=== PATIENT | male | born 1975 | race American Indian/Alaskan Native ===

== ENCOUNTER 2016-08-06 12:50 | Inpatient (IN) | payer MEDICARE, MEDICAID, OTHER ==
--- NOTE | 2016-08-06 12:45 | EDM.PDOC ---
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 He states at 0300 he got up and had diarrhea and then followed with vomiting. He has been unable to keep anything down since that time. He has mild diffuse abd pain without fever. no recent antibiotic use. Onset: Today Location: Reports: Abdomen Quality: Reports: Dull Severity: Moderate Improves with: Reports: None Worsens with: Reports: Eating - Related Data Allergies Allergy/AdvReac Type Severity Reaction Status Date / Time phenytoin sodium Allergy Cannot Verified 08/06/16 14:35 [From Dilantin] Remember Home Meds: Home Meds Insulin Detemir [Levemir] 6 units SQ BEDTIME 04/29/14 [History] Lisinopril [Zestril] 1 tab PO DAILY 04/29/14 [History] levETIRAcetam [Keppra] 500 mg PO BID 04/29/14 [History] Loperamide [Imodium] 6 mg PO DAILY 02/13/15 [History] Past Medical History Cardiovascular History: Reports: Hypertension Genitourinary History: Reports: UTI, Recurrent Musculoskeletal History: Reports: Amputation Neurological History: Reports: Seizure Endocrine/Metabolic History: Reports: Diabetes, Type II - Past Surgical History GI Surgical History: Reports: Cholecystectomy Musculoskeletal Surgical History: Reports: Amputation Social & Family History - Tobacco Use Smoking Status *Q: Current Every Day Smoker Years of Tobacco use: 30 Packs/Tins Daily: 0.1 Used Tobacco, but Quit: No Second Hand Smoke Exposure: Yes - Caffeine Use Caffeine Use: Reports: Coffee - Alcohol Use Days Per Week of Alcohol Use: 0 - Recreational Drug Use Recreational Drug Use: Yes Drug Use in Last 12 Months: Yes Recreational Drug Type: Reports: Marijuana/Hashish Recreational Drug Use Frequency: Monthly ED ROS GENERAL - Review of Systems Review Of Systems: See Below Constitutional: Reports: Fatigue. Denies: Fever, Chills, Malaise HEENT: Reports: No Symptoms Respiratory: Reports: No Symptoms Cardiovascular: Reports: No Symptoms GI/Abdominal: Reports: Abdominal Pain, Diarrhea, Vomiting : Reports: No Symptoms Musculoskeletal: Reports: No Symptoms Skin: Reports: No Symptoms Neurological: Reports: No Symptoms Psychiatric: Reports: No Symptoms ED EXAM, GI/ABD - Physical Exam Exam: See Below Exam Limited By: No Limitations General Appearance: Alert, WD/WN, No Apparent Distress, Mild Distress Ears: Normal External Exam, Normal Canal, Hearing Grossly Normal, Normal TMs Throat/Mouth: Normal Inspection, Normal Lips, Normal Teeth, Normal Gums, Normal Oropharynx, Normal Voice, No Airway Compromise Head: Atraumatic, Normocephalic Neck: Normal Inspection, Supple, Non-Tender, Full Range of Motion Respiratory/Chest: No Respiratory Distress, Lungs Clear, Normal Breath Sounds, No Accessory Muscle Use, Chest Non-Tender Cardiovascular: Normal Peripheral Pulses, No Edema, No Gallop, No JVD, No Murmur , No Rub, Tachycardia GI/Abdominal: Soft, No Organomegaly, No Distention, No Abnormal Bruit, No Mass, Hypoactive Bowel Sounds, Tenderness (left side upper and lower) Extremities: Non-Tender, Other (right BKA, Left AKA ) Neurological: Alert, Oriented, CN II-XII Intact, Normal Cognition, Normal Reflexes, No Motor/Sensory Deficits Psychiatric: Normal Affect, Normal Mood Skin Exam: Warm, Dry, Intact, Normal Color, No Rash Course - Vital Signs Last Recorded V/S: Last Vital Signs Temp 96.9 F 08/06/16 14:41 Pulse 106 H 08/06/16 14:41 Resp 18 08/06/16 14:41 BP 124/74 08/06/16 14:41 Pulse Ox 100 08/06/16 14:41 - Orders/Labs/Meds Orders: Active Orders 24 hr Category Date Time Status Blood Glucose Check, Bedside [RC] ONETIME Care 08/06/16 14:45 Active Abdomen Pelvis wo Cont [CT] Urgent Exams 08/06/16 13:44 Taken Chest 1V Frontal [CR] Urgent Exams 08/06/16 13:47 Taken Chest 2V [CR] Urgent Exams 08/06/16 13:43 Stop Req CULTURE BLOOD [BC] Stat Lab 08/06/16 14:10 Received CULTURE BLOOD [BC] Stat Lab 08/06/16 14:15 Received Blood Culture x2 Reflex Set [OM.PC] Stat Oth 08/06/16 13:44 Ordered Labs: Laboratory Tests 08/06/16 08/06/16 08/06/16 Range/Units 13:02 13:02 13:35 WBC 18.7 H (5.0-10.0) 10^3/uL RBC 5.43 (4.6-6.2) 10^6/uL Hgb 16.4 (14.0-18.0) g/dL Hct 47.2 (40.0-54.0) % MCV 86.9 (80-100) fL MCH 30.2 (27.0-34.0) pg MCHC 34.7 (33.0-35.0) g/dL Plt Count 204 (150-450) 10^3/uL Neut % (Auto) 91.4 H (42.2-75.2) % Lymph % (Auto) 2.5 L (20.5-50.1) % Chase % (Auto) 5.7 (2-8) % Eos % (Auto) 0.2 L (1.0-3.0) % Baso % (Auto) 0.2 (0.0-1.0) % Sodium 134 L (135-145) mmol/L Potassium 4.5 (3.6-5.0) mmol/L Chloride 101 (101-111) mmol/L Carbon Dioxide 17.0 L (21.0-31.0) mmol/L Anion Gap 20.5 BUN 33 H (7-18) mg/dL Creatinine 2.6 H (0.6-1.3) mg/dL Est Cr Clr Drug Dosing 39.96 mL/min Estimated GFR (MDRD) 27 BUN/Creatinine Ratio 12.69 Glucose 442 H* (74-105) mg/dL POC Glucose (70-105) mg/dl Lactic Acid (0.5-2.2) mmol/L Calcium 9.6 (8.4-10.2) mg/dl Total Bilirubin 1.0 (0.2-1.0) mg/dL AST 27 (10-42) IU/L ALT 19 (10-60) IU/L Alkaline Phosphatase 109 (42-121) IU/L Creatine Kinase 32 (26-174) IU/L Total Protein 8.0 (6.7-8.2) g/dl Albumin 4.3 (3.2-5.5) g/dl Globulin 3.7 Albumin/Globulin Ratio 1.16 Lipase 22 (22-51) U/L Urine Color Yellow (YELLOW) Urine Appearance Turbid (CLEAR) Urine pH 5.0 (5.0-9.0) Ur Specific Unity >= 1.030 (1.005-1.030) Urine Protein >=300 H (NEGATIVE) Urine Glucose (UA) 100 H (NEGATIVE) Urine Ketones 15 H (NEGATIVE) Urine Occult Blood Small H (NEGATIVE) Urine Nitrite Negative (NEGATIVE) Urine Bilirubin Large H (NEGATIVE) Urine Urobilinogen 0.2 (0.2-1.0) mg/dL Ur Leukocyte Esterase Negative (NEGATIVE) Urine RBC 0-5 /HPF Urine WBC 5-10 H (0-5/HPF) /HPF Ur Epithelial Cells Few /HPF Urine Bacteria Many H (0-FEW/HPF) /HPF Granular Casts Moderate /LPF Urine Mucus Moderate H /LPF 08/06/16 08/06/16 Range/Units 14:10 14:46 WBC (5.0-10.0) 10^3/uL RBC (4.6-6.2) 10^6/uL Hgb (14.0-18.0) g/dL Hct (40.0-54.0) % MCV (80-100) fL MCH (27.0-34.0) pg MCHC (33.0-35.0) g/dL Plt Count (150-450) 10^3/uL Neut % (Auto) (42.2-75.2) % Lymph % (Auto) (20.5-50.1) % Chase % (Auto) (2-8) % Eos % (Auto) (1.0-3.0) % Baso % (Auto) (0.0-1.0) % Sodium (135-145) mmol/L Potassium (3.6-5.0) mmol/L Chloride (101-111) mmol/L Carbon Dioxide (21.0-31.0) mmol/L Anion Gap BUN (7-18) mg/dL Creatinine (0.6-1.3) mg/dL Est Cr Clr Drug Dosing mL/min Estimated GFR (MDRD) BUN/Creatinine Ratio Glucose (74-105) mg/dL POC Glucose 392 H (70-105) mg/dl Lactic Acid 2.8 H (0.5-2.2) mmol/L Calcium (8.4-10.2) mg/dl Total Bilirubin (0.2-1.0) mg/dL AST (10-42) IU/L ALT (10-60) IU/L Alkaline Phosphatase (42-121) IU/L Creatine Kinase (26-174) IU/L Total Protein (6.7-8.2) g/dl Albumin (3.2-5.5) g/dl Globulin Albumin/Globulin Ratio Lipase (22-51) U/L Urine Color (YELLOW) Urine Appearance (CLEAR) Urine pH (5.0-9.0) Ur Specific Unity (1.005-1.030) Urine Protein (NEGATIVE) Urine Glucose (UA) (NEGATIVE) Urine Ketones (NEGATIVE) Urine Occult Blood (NEGATIVE) Urine Nitrite (NEGATIVE) Urine Bilirubin (NEGATIVE) Urine Urobilinogen (0.2-1.0) mg/dL Ur Leukocyte Esterase (NEGATIVE) Urine RBC /HPF Urine WBC (0-5/HPF) /HPF Ur Epithelial Cells /HPF Urine Bacteria (0-FEW/HPF) /HPF Granular Casts /LPF Urine Mucus /LPF Meds: Medications Discontinued Medications Generic Name Dose Route Start Last Admin Trade Name Freq PRN Reason Stop Dose Admin Ondansetron HCl 8 mg/ Sodium 54 mls @ 200 mls/hr 08/06/16 12:52 08/06/16 13: 01 Chloride IV 08/06/16 13:08 200 mls/hr ONETIME ONE Administration Sodium Chloride 1,000 mls @ 999 mls/hr 08/06/16 13:11 08/06/16 13:36 Normal Saline IV 08/06/16 14:11 999 mls/hr .BOLUS ONE Administration Ondansetron HCl 8 mg/ Sodium 54 mls @ 200 mls/hr 08/06/16 13:16 08/06/16 13: 36 Chloride IV 08/06/16 13:32 200 mls/hr ONETIME ONE Administration Insulin Human Regular 10 unit 08/06/16 13:41 08/06/16 13:53 Novolin R SUBCUT 08/06/16 13:42 10 units ONETIME ONE Administration Protocol Metoclopramide HCl 10 mg 08/06/16 13:17 08/06/16 13:36 Reglan IVPUSH 08/06/16 13:18 10 mg ONETIME ONE Administration Ondansetron HCl Confirm 08/06/16 12:36 08/06/16 13:02 Zofran Administered 08/06/16 12:37 Not Given Dose 8 mg .ROUTE .STK-MED ONE - Re-Assessments/Exams Free Text/Narrative Re-Assessment/Exam: 08/06/16 15:07 On reassessment patient is comfortable/ vomiting has subsided. pain controlled. Patient told of results and the need to admit. Patient was discussed with DR. Cortes who agreed to admit. patient stable at time of admission. Departure - Departure Time of Disposition: 15:05 (spoke with Dr. Burris who agreed to admit. ) Disposition: Admitted As Inpatient 64 Condition: good Clinical Impression: Leukocytosis, unspecified, Abdominal pain in male, Diabetes 1.5, managed as type 2, Dehydration - Discharge Information - My Orders Last 24 Hours: My Active Orders 08/06/16 13:43 Chest 2V [CR] Urgent 08/06/16 13:44 Abdomen Pelvis wo Cont [CT] Urgent Blood Culture x2 Reflex Set [OM.PC] Stat 08/06/16 13:47 Chest 1V Frontal [CR] Urgent 08/06/16 14:10 CULTURE BLOOD [BC] Stat 08/06/16 14:15 CULTURE BLOOD [BC] Stat 08/06/16 14:45 Blood Glucose Check, Bedside [RC] ONETIME - Assessment/Plan Last 24 Hours: My Active Orders 08/06/16 13:43 Chest 2V [CR] Urgent 08/06/16 13:44 Abdomen Pelvis wo Cont [CT] Urgent Blood Culture x2 Reflex Set [OM.PC] Stat 08/06/16 13:47 Chest 1V Frontal [CR] Urgent 08/06/16 14:10 CULTURE BLOOD [BC] Stat 08/06/16 14:15 CULTURE BLOOD [BC] Stat 08/06/16 14:45 Blood Glucose Check, Bedside [RC] ONETIME
[~2016-08-06 12:50] MED LIST: Ondansetron 4 MG/2 ML SDV ONE
[2016-08-06] MEDS ORDERED: Ondansetron 8 MG in Sodium Chloride 0.9% 50 ML IV ONE ×2 (12:52→13:16)
[2016-08-06] MEDS ORDERED: Sodium Chloride 0.9% 1,000 ML IV ONE (13:11)
[2016-08-06] MEDS ORDERED: Metoclopramide 10 MG/2 ML SDV IVPUSH ONE (13:17)
[2016-08-06] MEDS ORDERED: Insulin Regular, Human 100 Units/ML 10 ML Vial SUBCUT ONE (13:41)
[2016-08-06] MEDS ORDERED: Insulin Aspart 100 Units/ML 3 ML Pen SUBCUT ONE (16:11)
[2016-08-06] MEDS ORDERED: Acetaminophen 325 MG Tab PO PRN (16:14)
[2016-08-06] MEDS ORDERED: Zolpidem 5 MG Tab PO PRN (16:14)
[2016-08-06] MEDS ORDERED: Ondansetron 4 MG Tab.DIS PO PRN (16:14)
[2016-08-06] MEDS ORDERED: oxyCODONE 5 MG Tab PO PRN (16:14)
[2016-08-06] MEDS ORDERED: Morphine 2 MG/ML Syringe IVPUSH PRN (16:14)
[2016-08-06] MEDS ORDERED: Promethazine 25 MG/ML SDV IM PRN (16:14)
[2016-08-06] MEDS ORDERED: Ondansetron 4 MG/2 ML SDV IVPUSH PRN (16:14)
[2016-08-06] MEDS ORDERED: Sodium Chloride 0.9% 10 ML Syringe FLUSH PRN (16:14)
--- NOTE | 2016-08-06 16:23 | PCM.HP ---
H&P History of Present Illness - General Date of Service: 08/06/16 Admit Problem/Dx: Admission Diagnosis/Problem Admission Diagnosis/Problem Acute renal failure Source of Information: Patient, Provider (ER) - History of Present Illness Initial Comments - Free Text/Narative: the patient is a 41-year-old gentleman with a history of diabetes type 1, bilateral lower extremity amputation, history of seizure disorder. He has chronic diarrhea taking about 6 mg Imodium every day. he has a history of diabetes, using long-acting insulin only. 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 Because of those bowel movements although that is not unusual for him. He could not keep fluid or food down. After some panel vomiting the patient developed abdomen pain mostly on the left side crampy. The patient has a history of diabetes. This morning blood sugar was in the 130s. came into the emergency room. Was given antiemetics and pain medication. He feels that the pain has resolved Nausea is better - Related Data Allergies/Adverse Reactions: Allergies Allergy/AdvReac Type Severity Reaction Status Date / Time phenytoin sodium Allergy Cannot Verified 08/06/16 15:57 [From Dilantin] Remember Home Medications: Home Meds Insulin Detemir [Levemir] 15 units SQ BEDTIME 04/29/14 [History] Lisinopril [Zestril] 10 mg PO DAILY 04/29/14 [History] levETIRAcetam [Keppra] 500 mg PO BIDMEALS 04/29/14 [History] Loperamide [Imodium] 6 mg PO DAILY 02/13/15 [History] Past Medical History Cardiovascular History: Reports: Hypertension Gastrointestinal History: Reports: Gastritis, Other (See Below) Genitourinary History: Reports: UTI, Recurrent Musculoskeletal History: Reports: Amputation, Other (See Below) Other Musculoskeletal History: 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 Neurological History: Reports: Seizure Endocrine/Metabolic History: Reports: Diabetes, Type II - Past Surgical History Cardiovascular Surgical History: Reports: None GI Surgical History: Reports: Cholecystectomy Male Surgical History: Reports: None Endocrine Surgical History: Reports: None Neurological Surgical History: Reports: None Musculoskeletal Surgical History: Reports: Amputation Social & Family History - Family History Family Medical History: Noncontributory - Tobacco Use Smoking Status *Q: Former Smoker Years of Tobacco use: 30 Packs/Tins Daily: 0.1 Used Tobacco, but Quit: Yes Month Tobacco Last Used: 05/06/16 Second Hand Smoke Exposure: No - Caffeine Use Caffeine Use: Reports: Coffee, Soda - Alcohol Use Days Per Week of Alcohol Use: 0 - Recreational Drug Use Recreational Drug Use: Yes Drug Use in Last 12 Months: Yes Recreational Drug Type: Reports: Marijuana/Hashish Recreational Drug Use Frequency: Daily H&P Review of Systems - Review of Systems: Review Of Systems: See Below General: Denies: Fever Pulmonary: Denies: Shortness of Breath Cardiovascular: Denies: Chest Pain Gastrointestinal: Reports: Abdominal Pain, Nausea, Vomiting. Denies: Black Stool Genitourinary: Denies: Dysuria Psychiatric: Denies: Confusion Exam - Exam Exam: See Below - Vital Signs Vital Signs: Last Vital Signs Temp 37.2 C 08/06/16 15:47 Pulse 110 H 08/06/16 15:47 Resp 18 08/06/16 15:47 BP 113/77 08/06/16 15:47 Pulse Ox 100 08/06/16 15:47 Weight: 74.933 kg - Exam General: Alert, Oriented Neck: Supple Lungs: Clear to Auscultation, Normal Respiratory Effort Cardiovascular: Regular Rate, Regular Rhythm Abdomen: Normal Bowel Sounds, Soft. No: Distention Extremities: Other (left above-knee and right below knee amputation) - Patient Data Result Diagrams: 08/06/16 13:02 08/06/16 13:02 Imaging Impressions last 24 hrs: chest x-ray per official reading "no acute findings" CT abdomen and pelvis without IV contrast showed "multiple loops of dilated small bowel with air fluid levels. The bowel wall thickening in the jejunum. Opacities in the lingula and both lower lobes May represents atelectasis or pneumonia. *Q Meaningful Use (ADM) - VTE *Q VTE Criteria *Q: - Stroke *Q Stroke Criteria *Q: - AMI *Q AMI Criteria *Q: - Problem List (1) Acute renal failure SNOMED Code(s): 77799667 ICD Code: N17.9 - ACUTE KIDNEY FAILURE, UNSPECIFIED Status: Acute Current Visit: Yes (2) Diabetic ketoacidosis SNOMED Code(s): 006502280, 138054095 ICD Code: E13.10 - OTH DIABETES MELLITUS WITH KETOACIDOSIS WITHOUT COMA Status: Acute Current Visit: Yes (3) Gastroenteritis SNOMED Code(s): 38207761 ICD Code: K52.9 - NONINFECTIVE GASTROENTERITIS AND COLITIS, UNSPECIFIED Status: Acute Current Visit: Yes (4) Abdominal pain in male SNOMED Code(s): 13123033 ICD Code: R10.9 - UNSPECIFIED ABDOMINAL PAIN Status: Acute Current Visit : Yes (5) Dehydration SNOMED Code(s): 80112544 ICD Code: E86.0 - DEHYDRATION Status: Acute Current Visit: Yes (6) Uncontrolled diabetes mellitus SNOMED Code(s): 974808341 ICD Code: E11.65 - TYPE 2 DIABETES MELLITUS WITH HYPERGLYCEMIA Status: Acute Current Visit: No Qualifiers: Diabetes mellitus type: other specified (including RADHA) Diabetes mellitus complication status: with unspecified complications Diabetes mellitus roasterman insulin use: with roasterman use Qualified Code(s): E13.8 - Other specified diabetes mellitus with unspecified complications; E13.65 - Other specified diabetes mellitus with hyperglycemia; Z79.4 - long term care social worker (current) use of insulin Problem List Initiated/Reviewed/Updated: Yes Orders Last 24hrs: Active Orders 24 hr Category Date Time Status Glucose [Blood Glucose Check, Bedside] [RC] QIDACANDBED Care 08/06/16 16:12 Ordered Oxygen Therapy [RC] PRN Care 08/06/16 16:14 Ordered Peripheral IV Care [RC] . DIRECTED Care 08/06/16 16:15 Ordered Up With Assistance [RC] ASDIRECTED Care 08/06/16 16:14 Ordered VTE/DVT Education [RC] PER UNIT ROUTINE Care 08/06/16 16:14 Ordered Vital Signs [RC] Q4H Care 08/06/16 16:14 Ordered Full Liquid Diet [DIET] Diet 08/06/16 Dinner Ordered BASIC METABOLIC PANEL,BMP [CHEM] AM Lab 08/07/16 05:15 Ordered CBC WITH AUTO DIFF [HEME] AM Lab 08/07/16 05:15 Ordered LACTIC ACID [CHEM] AM Lab 08/07/16 05:11 Ordered LACTIC ACID [CHEM] Routine Lab 08/06/16 19:00 Ordered Acetaminophen [Tylenol] Med 08/06/16 16:14 Ordered 650 mg PO Q4H PRN Heparin Sodium Med 08/06/16 22:00 Ordered 5,000 units SUBCUT Q8HR Insulin Aspart [NovoLOG] Med 08/06/16 17:00 Ordered See Protocol SUBCUT TIDAC Insulin Detemir Med 08/06/16 21:00 Ordered 15 units SQ BEDTIME Loperamide [Imodium] Med 08/07/16 09:00 Ordered 6 mg PO DAILY Morphine Med 08/06/16 16:14 Ordered 1 mg IVPUSH Q2H PRN Ondansetron [Zofran ODT] Med 08/06/16 16:14 Ordered 4 mg PO Q6H PRN Ondansetron [Zofran] Med 08/06/16 16:14 Ordered 4 mg IVPUSH Q6H PRN Pantoprazole [ProTONIX] Med 08/06/16 17:00 Ordered 40 mg PO BIDAC Promethazine [Phenergan] Med 08/06/16 16:14 Ordered 6.25 mg IM Q6H PRN Sodium Chloride 0.9% @ 150 MLS/HR (1000ml) Med 08/06/16 16:15 Ordered Sodium Chloride 0.9% [Normal Saline] 1,000 ml IV ASDIRECTED Sodium Chloride 0.9% [Saline Flush] Med 08/06/16 16:14 Ordered 10 ml FLUSH ASDIRECTED PRN Zolpidem [Ambien] Med 08/06/16 16:14 Ordered 5 mg PO BEDTIME PRN levETIRAcetam [Keppra] Med 08/06/16 18:00 Ordered 500 mg PO BIDMEALS oxyCODONE Med 08/06/16 16:14 Ordered 5 mg PO Q4H PRN Peripheral IV Insertion Adult [OM.PC] Routine Oth 08/06/16 16:14 Ordered Resuscitation Status Routine Resus Stat 08/06/16 16:14 Ordered Medication Orders Acetaminophen (Tylenol) 650 mg PO Q4H PRN PRN Reason: Pain (Mild 1-3)/fever Heparin Sodium (Porcine) (Heparin Sodium) 5,000 units SUBCUT Q8HR BRENT Sodium Chloride (Normal Saline) 1,000 mls @ 150 mls/hr IV ASDIRECTED BRENT Insulin Aspart (Novolog) 0 unit SUBCUT TIDAC BRENT PRN Reason: Protocol Levetiracetam (Keppra) 500 mg PO BIDMEALS BRENT Loperamide HCl (Imodium) 6 mg PO DAILY BRENT Morphine Sulfate (Morphine) 1 mg IVPUSH Q2H PRN PRN Reason: Pain (severe 7-10) Non-Formulary Medication (Insulin Detemir) 15 units SQ BEDTIME BRENT Ondansetron HCl (Zofran Odt) 4 mg PO Q6H PRN PRN Reason: nausea, able to take PO Ondansetron HCl (Zofran) 4 mg IVPUSH Q6H PRN PRN Reason: Nausea/Vomiting Oxycodone HCl (Oxycodone) 5 mg PO Q4H PRN PRN Reason: Pain (moderate 4-6) Pantoprazole Sodium (Protonix) 40 mg PO BIDAC BRENT Promethazine HCl (Phenergan) 6.25 mg IM Q6H PRN PRN Reason: Nausea/Vomiting Sodium Chloride (Saline Flush) 10 ml FLUSH ASDIRECTED PRN PRN Reason: Keep Vein Open Zolpidem Tartrate (Ambien) 5 mg PO BEDTIME PRN PRN Reason: Sleep Assessment/Plan Comment:: the patient is a 41-year-old diabetic who presented with nausea vomiting. Nausea and vomiting that might relate to acute gastroenteritis we'll hydrate the patient Treat with antiemetics and Imodium as needed The patient does have a history of chronic diarrhea C. differential is less likely, continue Imodium Leukocytosis Clinically the patient has no pneumonia This might relate to nausea vomiting, gastroenteritis Obtained blood culture For now hold off on antibiotic Acute renal failure Likely secondary to dehydration due to nausea vomiting decreased oral intake Stop ANEL inhibitor give fluids uncontrolled diabetes, diabetic ketoacidosis with elevated anion gap We'll give IV fluids add short-acting insulin follow blood sugars History of seizure disorder Treat with Kiran History of hypertension With the acute renal failure for now hold the ANEL inhibitor lactic acidosis Likely due to nausea vomiting and DKA I don't think this represents severe sepsis Recheck lactic acid levels
[2016-08-06] MEDS: Sodium Chloride 0.9% 1,000 ML IV SCH ×2 (16:35→23:55)
[2016-08-06] MEDS ORDERED: Pantoprazole 40 MG Tab.CR PO SCH (17:00)
[2016-08-06] MEDS ORDERED: Insulin Aspart 100 Units/ML 3 ML Pen SUBCUT SCH (17:00)
[2016-08-06] MEDS: levETIRAcetam 500 MG Tab PO SCH (17:38)
[2016-08-06] MEDS: Insulin Aspart 100 Units/ML 3 ML Pen SUBCUT SCH ×2 (20:27→23:59)
[2016-08-06] MEDS: Pantoprazole 40 MG Vial IVPUSH SCH (20:28)
[2016-08-06] MEDS ORDERED: Insulin Detemir 100 Units/ML 3 ML Pen SUBCUT SCH ×2 (21:00)
[2016-08-06] MEDS: Heparin Sodium 5,000 Units/ML Vial SUBCUT SCH (21:00)
[2016-08-07] MEDS: Insulin Aspart 100 Units/ML 3 ML Pen SUBCUT SCH ×2 (04:08→07:54)
[2016-08-07] MEDS: Heparin Sodium 5,000 Units/ML Vial SUBCUT SCH (06:01)
[2016-08-07] MEDS: Sodium Chloride 0.9% 1,000 ML IV SCH (06:19)
[2016-08-07 06:59] VITALS: BP 124/67
[2016-08-07] MEDS: Pantoprazole 40 MG Vial IVPUSH SCH (08:15)
[2016-08-07] MEDS: levETIRAcetam 500 MG Tab PO SCH (08:15)
[2016-08-07] MEDS ORDERED: Loperamide 2 MG Cap PO SCH (09:00)
--- NOTE | 2016-08-07 10:49 | PCM.DCSUM1 ---
Discharge Summary - Hospital Course Free Text/Narrative:: the patient is a 41-year-old gentleman with a history of diabetes type 1, bilateral lower extremity amputation, history of seizure disorder. He has chronic diarrhea taking about 6 mg Imodium every day. he has a history of diabetes, using long-acting insulin only. 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 Because of those bowel movements although that is not unusual for him. He could not keep fluid or food down. After some panel vomiting the patient developed abdomen pain mostly on the left side crampy. The patient has a history of diabetes. This morning blood sugar was in the 130s. came into the emergency room. blood sugars were above 400. Was given antiemetics and pain medication. Nausea and vomiting that might relate to acute gastroenteritis resolved with hydration tolerating diet and drinking well Leukocytosis Clinically the patient has no pneumonia This might relate to nausea vomiting, gastroenteritis Obtained blood culture - pending Acute renal failure Likely secondary to dehydration due to nausea vomiting decreased oral intake improved with IV fluids can resume ANEL inhibitor follow as outpatient uncontrolled diabetes, diabetic ketoacidosis with elevated anion gap treated with IV fluids and short-acting insulin blood sugars normalized Patient is able to eat and drink well, feeling well metabolic acidosis improved, lactic acidosis resolved History of seizure disorder Treat with Kefermin - Discharge Data Discharge Date: 08/07/16 Discharge Disposition: Home, Self-Care 01 Condition: Good - Discharge Diagnosis/Problem(s) (1) Acute renal failure SNOMED Code(s): 47104543 ICD Code: N17.9 - ACUTE KIDNEY FAILURE, UNSPECIFIED Status: Acute Current Visit: Yes (2) Diabetic ketoacidosis SNOMED Code(s): 016791061, 136802737 ICD Code: E13.10 - OTH DIABETES MELLITUS WITH KETOACIDOSIS WITHOUT COMA Status: Acute Current Visit: Yes (3) Gastroenteritis SNOMED Code(s): 73874961 ICD Code: K52.9 - NONINFECTIVE GASTROENTERITIS AND COLITIS, UNSPECIFIED Status: Acute Current Visit: Yes (4) Abdominal pain in male SNOMED Code(s): 18578606 ICD Code: R10.9 - UNSPECIFIED ABDOMINAL PAIN Status: Acute Current Visit : Yes (5) Dehydration SNOMED Code(s): 96502882 ICD Code: E86.0 - DEHYDRATION Status: Acute Current Visit: Yes (6) Uncontrolled diabetes mellitus SNOMED Code(s): 673915475 ICD Code: E11.65 - TYPE 2 DIABETES MELLITUS WITH HYPERGLYCEMIA Status: Acute Current Visit: No Qualifiers: Diabetes mellitus type: other specified (including RADHA) Diabetes mellitus complication status: with unspecified complications Diabetes mellitus penitentiary insulin use: with long term care pharmacist use Qualified Code(s): E13.8 - Other specified diabetes mellitus with unspecified complications; E13.65 - Other specified diabetes mellitus with hyperglycemia; Z79.4 - [facility] (current) use of insulin - Discharge Plan Home Medications: Home Meds Insulin Detemir [Levemir] 6 units SQ BEDTIME 04/29/14 [History] Lisinopril [Zestril] 10 mg PO DAILY 04/29/14 [History] levETIRAcetam [Keppra] 500 mg PO BIDMEALS 04/29/14 [History] Loperamide [Imodium] 6 mg PO DAILY 02/13/15 [History] Referrals: PCP,None [Primary Care Provider] - (in 2-3 days) - General Info Date of Service: 08/07/16 Admission Dx/Problem (Free Text: Admission Diagnosis/Problem Admission Diagnosis/Problem Acute renal failure Functional Status: Reports: tolerating diet, urinating - Review of Systems Pulmonary: Denies: shortness of breath Cardiovascular: Denies: Chest Pain Gastrointestinal: Denies: Abdominal pain, Decreased appetite, Diarrhea, Nausea, Vomiting Genitourinary: Denies: dysuria Neurological: Denies: Confusion - Patient Data Vitals - Most Recent: Last Vital Signs Temp 36.7 C 08/07/16 06:58 Pulse 95 08/07/16 06:58 Resp 20 08/07/16 06:58 BP 124/67 08/07/16 06:58 Pulse Ox 99 08/07/16 06:58 Weight - Most Recent: 74.933 kg I&O - Last 24 hours: Intake & Output 08/06/16 08/07/16 08/07/16 22:59 06:59 14:59 Intake Total 2334 1184 300 Output Total 200 Balance 2334 984 300 Lab Results - Last 24 hrs: Laboratory Results - last 24 hr 08/06/16 08/06/16 08/06/16 Range/Units 19:00 20:04 23:52 WBC (5.0-10.0) 10^3/uL RBC (4.6-6.2) 10^6/uL Hgb (14.0-18.0) g/dL Hct (40.0-54.0) % MCV (80-100) fL MCH (27.0-34.0) pg MCHC (33.0-35.0) g/dL Plt Count (150-450) 10^3/uL Neut % (Auto) (42.2-75.2) % Lymph % (Auto) (20.5-50.1) % [place] % (Auto) (2-8) % Eos % (Auto) (1.0-3.0) % Baso % (Auto) (0.0-1.0) % Sodium (135-145) mmol/L Potassium (3.6-5.0) mmol/L Chloride (101-111) mmol/L Carbon Dioxide (21.0-31.0) mmol/L Anion Gap BUN (7-18) mg/dL Creatinine (0.6-1.3) mg/dL Est Cr Clr Drug Dosing mL/min Estimated GFR (MDRD) Glucose (74-105) mg/dL POC Glucose 257 H 237 H (70-105) mg/dl Lactic Acid 3.9 H (0.5-2.2) mmol/L Calcium (8.4-10.2) mg/dl 08/07/16 08/07/16 08/07/16 Range/Units 03:57 05:45 05:45 WBC 12.8 H (5.0-10.0) 10^3/uL RBC 4.54 L (4.6-6.2) 10^6/uL Hgb 13.6 L (14.0-18.0) g/dL Hct 39.9 L (40.0-54.0) % MCV 87.9 (80-100) fL MCH 30.0 (27.0-34.0) pg MCHC 34.1 (33.0-35.0) g/dL Plt Count 180 (150-450) 10^3/uL Neut % (Auto) 82.6 H (42.2-75.2) % Lymph % (Auto) 8.4 L (20.5-50.1) % [place] % (Auto) 7.9 (2-8) % Eos % (Auto) 0.9 L (1.0-3.0) % Baso % (Auto) 0.2 (0.0-1.0) % Sodium (135-145) mmol/L Potassium (3.6-5.0) mmol/L Chloride (101-111) mmol/L Carbon Dioxide (21.0-31.0) mmol/L Anion Gap BUN (7-18) mg/dL Creatinine (0.6-1.3) mg/dL Est Cr Clr Drug Dosing mL/min Estimated GFR (MDRD) Glucose (74-105) mg/dL POC Glucose 164 H (70-105) mg/dl Lactic Acid 0.8 (0.5-2.2) mmol/L Calcium (8.4-10.2) mg/dl 08/07/16 08/07/16 Range/Units 05:45 07:53 WBC (5.0-10.0) 10^3/uL RBC (4.6-6.2) 10^6/uL Hgb (14.0-18.0) g/dL Hct (40.0-54.0) % MCV (80-100) fL MCH (27.0-34.0) pg MCHC (33.0-35.0) g/dL Plt Count (150-450) 10^3/uL Neut % (Auto) (42.2-75.2) % Lymph % (Auto) (20.5-50.1) % [place] % (Auto) (2-8) % Eos % (Auto) (1.0-3.0) % Baso % (Auto) (0.0-1.0) % Sodium 135 (135-145) mmol/L Potassium 4.2 (3.6-5.0) mmol/L Chloride 107 (101-111) mmol/L Carbon Dioxide 20.0 L (21.0-31.0) mmol/L Anion Gap 12.2 BUN 32 H (7-18) mg/dL Creatinine 2.0 H (0.6-1.3) mg/dL Est Cr Clr Drug Dosing 50.48 mL/min Estimated GFR (MDRD) 37 Glucose 141 H (74-105) mg/dL POC Glucose 137 H (70-105) mg/dl Lactic Acid (0.5-2.2) mmol/L Calcium 8.5 (8.4-10.2) mg/dl Med Orders - Current: Current Medications Acetaminophen (Tylenol) 650 mg PO Q4H PRN PRN Reason: Pain (Mild 1-3)/fever Heparin Sodium (Porcine) (Heparin Sodium) 5,000 units SUBCUT Q8HR [facility] Last Admin: 08/07/16 06:01 Dose: 5,000 units Sodium Chloride (Normal Saline) 1,000 mls @ 150 mls/hr IV ASDIRECTED [facility] Last Admin: 08/07/16 06:19 Dose: 150 mls/hr Insulin Aspart (Novolog) 0 unit SUBCUT Q4H [facility] PRN Reason: Protocol Last Admin: 08/07/16 07:54 Dose: Not Given Insulin Detemir (Levemir) 6 unit SUBCUT BEDTIME [facility] Last Admin: 08/06/16 20:58 Dose: 6 units Levetiracetam (Keppra) 500 mg PO BIDMEALS [facility] Last Admin: 08/07/16 08:15 Dose: 500 mg Loperamide HCl (Imodium) 6 mg PO DAILY [facility] Last Admin: 08/07/16 08:15 Dose: 6 mg Morphine Sulfate (Morphine) 1 mg IVPUSH Q2H PRN PRN Reason: Pain (severe 7-10) Ondansetron HCl (Zofran Odt) 4 mg PO Q6H PRN PRN Reason: nausea, able to take PO Ondansetron HCl (Zofran) 4 mg IVPUSH Q6H PRN PRN Reason: Nausea/Vomiting Oxycodone HCl (Oxycodone) 5 mg PO Q4H PRN PRN Reason: Pain (moderate 4-6) Last Admin: 08/07/16 00:07 Dose: 5 mg Pantoprazole Sodium (Protonix Iv) 40 mg IVPUSH Q12H [facility] Last Admin: 08/07/16 08:15 Dose: 40 mg Promethazine HCl (Phenergan) 6.25 mg IM Q6H PRN PRN Reason: Nausea/Vomiting Sodium Chloride (Saline Flush) 10 ml FLUSH ASDIRECTED PRN PRN Reason: Keep Vein Open Zolpidem Tartrate (Ambien) 5 mg PO BEDTIME PRN PRN Reason: Sleep Discontinued Medications Ondansetron HCl 8 mg/ Sodium (Chloride) 54 mls @ 200 mls/hr IV ONETIME ONE Stop: 08/06/16 13:08 Last Admin: 08/06/16 13:01 Dose: 200 mls/hr Sodium Chloride (Normal Saline) 1,000 mls @ 999 mls/hr IV .BOLUS ONE Stop: 08/06/16 14:11 Last Admin: 08/06/16 13:36 Dose: 999 mls/hr Ondansetron HCl 8 mg/ Sodium (Chloride) 54 mls @ 200 mls/hr IV ONETIME ONE Stop: 08/06/16 13:32 Last Admin: 08/06/16 13:36 Dose: 200 mls/hr Insulin Aspart (Novolog) 10 unit SUBCUT ONETIME ONE Stop: 08/06/16 16:12 Last Admin: 08/06/16 16:36 Dose: 10 units Insulin Aspart (Novolog) 0 unit SUBCUT TIDAC [facility] PRN Reason: Protocol Insulin Detemir (Levemir) 15 unit SUBCUT BEDTIME [facility] Insulin Human Regular (Novolin R) 10 unit SUBCUT ONETIME ONE PRN Reason: Protocol Stop: 08/06/16 13:42 Last Admin: 08/06/16 13:53 Dose: 10 units Metoclopramide HCl (Reglan) 10 mg IVPUSH ONETIME ONE Stop: 08/06/16 13:18 Last Admin: 08/06/16 13:36 Dose: 10 mg Ondansetron HCl (Zofran) Confirm Administered Dose 8 mg .ROUTE .STK-MED ONE Stop: 08/06/16 12:37 Last Admin: 08/06/16 13:02 Dose: Not Given Pantoprazole Sodium (Protonix) 40 mg PO BIDAC [facility] Last Admin: 08/06/16 16:35 Dose: 40 mg - Exam General: Reports: alert, oriented Neck: Reports: supple Lungs: Reports: Clear to auscultation, Normal respiratory effort Cardiovascular: Reports: Regular Rate, Regular Rhythm Abdomen: Reports: bowel sounds present, soft, no tenderness, no distension Extremities: Reports: other (bilateral lower extremity amputations) Neurological: Reports: no new focal deficit Psy/Mental Status: Reports: alert, normal affect, normal mood *Q Meaningful Use (DIS) - VTE *Q VTE Criteria *Q: - Stroke *Q Stroke Criteria *Q: - AMI *Q AMI Criteria *Q:
== END 2016-08-07 11:20 | disposition home or self-care (01) | DRG 682 ==
LOC: DL.ED 12:50 → DL.MS 15:33 → UNDOADMIN 15:33 → DL.MS 16:16 → UNDODISIN 08-07 11:20
PROVIDERS: ADMIT Internal Medicine; ATTEND Internal Medicine
DX: N17.9 Acute kidney failure, unspecified (principal); D72.829 Elevated white blood cell count, unspecified; E13.10 Other specified diabetes mellitus with ketoacidosis without coma; E11.9 Type 2 diabetes mellitus without complications; K52.9 Noninfective gastroenteritis and colitis, unspecified; R10.9 Unspecified abdominal pain; E86.0 Dehydration; Z79.4 Long term (current) use of insulin; G40.909 Epilepsy, unspecified, not intractable, without status epilepticus; F17.200 Nicotine dependence, unspecified, uncomplicated; F12.90 Cannabis use, unspecified, uncomplicated; Z88.8 Allergy status to other drugs, medicaments and biological substances; Z79.899 Other long term (current) drug therapy; I10 Essential (primary) hypertension; Z89.511 Acquired absence of right leg below knee; Z89.612 Acquired absence of left leg above knee
CPT/HCPCS: 36415; 71010; 74176; 80053; 81001; 82550; 82962 ×2; 83605; 83690; 85025; 87040 ×2; 96361; 96365; 96375; 99285; J2405 ×2; J2765; J7030; J7050 ×2; 80048; 96372; A9270-GY; C9113; J1644; J1815-GY

== ENCOUNTER 2017-06-07 16:08 | Emergency (ER) | payer MEDICARE, MEDICAID ==
[2017-06-07 16:25] VITALS: BP 159/89
--- NOTE | 2017-06-07 16:36 | EDM.PDOC ---
ED HPI GENERAL MEDICAL PROBLEM - General Chief Complaint: Abdominal Pain Stated Complaint: ABD PROBLEMS [id number] Time Seen by Provider: 06/07/17 16:27 Source of Information: Reports: Patient, RN, RN Notes Reviewed History Limitations: Reports: No Limitations - History of Present Illness INITIAL COMMENTS - FREE TEXT/NARRATIVE: Pt presents to the ER with c/o N/V, abdominal tenderness since this morning when he woke up. He states this has been happening since he has had his leg amputations, used to be once per year, and now more frequently. He admits to history of DM. He states he has had some diarrhea as well which is not new. He states he has had some fever and chills. Denies chest pain or SOB. Onset: Today, Sudden Duration: Getting Worse Location: Reports: Abdomen Quality: Reports: Ache, Dull Severity: Mild Improves with: Reports: None Worsens with: Reports: None Associated Symptoms: Reports: No Other Symptoms - Related Data Allergies Allergy/AdvReac Type Severity Reaction Status Date / Time phenytoin sodium Allergy Cannot Verified 08/06/16 15:57 [From Dilantin] Remember Home Meds: Home Meds Insulin Detemir [Levemir] 6 units SQ BEDTIME 04/29/14 [History] levETIRAcetam [Keppra] 500 mg PO BIDMEALS 04/29/14 [History] Loperamide [Imodium] 6 mg PO DAILY 02/13/15 [History] Zolpidem [Ambien] 1 tab PO BEDTIME 06/07/17 [History] Past Medical History Cardiovascular History: Reports: Hypertension Gastrointestinal History: Reports: Gastritis, Other (See Below) Genitourinary History: Reports: UTI, Recurrent Musculoskeletal History: Reports: Amputation, Other (See Below) Other Musculoskeletal History: 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 Neurological History: Reports: Seizure Endocrine/Metabolic History: Reports: Diabetes, Type II - Past Surgical History Cardiovascular Surgical History: Reports: None GI Surgical History: Reports: Cholecystectomy Male Surgical History: Reports: None Endocrine Surgical History: Reports: None Neurological Surgical History: Reports: None Musculoskeletal Surgical History: Reports: Amputation Social & Family History - Family History Family Medical History: Noncontributory - Tobacco Use Smoking Status *Q: Former Smoker Years of Tobacco use: 30 Packs/Tins Daily: 0.1 Used Tobacco, but Quit: Yes Month/Year Tobacco Last Used: 05/06/16 Second Hand Smoke Exposure: No - Caffeine Use Caffeine Use: Reports: Coffee, Soda - Alcohol Use Days Per Week of Alcohol Use: 0 - Recreational Drug Use Recreational Drug Use: Yes Drug Use in Last 12 Months: Yes Recreational Drug Type: Reports: Marijuana/Hashish Recreational Drug Use Frequency: Daily ED ROS GENERAL - Review of Systems Review Of Systems: ROS reveals no pertinent complaints other than HPI. ED EXAM, GI/ABD - Physical Exam Exam: See Below Exam Limited By: No Limitations General Appearance: Alert, WD/WN, No Apparent Distress Eyes: Bilateral: Normal Appearance, EOMI Ears: Normal External Exam, Hearing Grossly Normal Nose: Normal Inspection Throat/Mouth: Normal Inspection, Normal Voice, No Airway Compromise Head: Atraumatic, Normocephalic Neck: Normal Inspection, Supple, Non-Tender, Full Range of Motion Respiratory/Chest: No Respiratory Distress, Lungs Clear, Normal Breath Sounds, No Accessory Muscle Use, Chest Non-Tender Cardiovascular: Normal Peripheral Pulses, Regular Rate, Rhythm, No Edema, No Gallop, No JVD, No Murmur, No Rub GI/Abdominal Exam: Normal Bowel Sounds, Soft, No Organomegaly, No Distention, No Abnormal Bruit, No Mass, Tender (Male) Exam: Deferred Rectal (Males) Exam: Deferred Back Exam: Normal Inspection, Full Range of Motion, NT Extremities: Normal Inspection, Normal Range of Motion, Non-Tender, No Pedal Edema, Normal Capillary Refill, Other (hands have severe eczema with areas of healing and open fissures) Neurological: Alert, Oriented, CN II-XII Intact, Normal Cognition, Normal Gait, Normal Reflexes, No Motor/Sensory Deficits Psychiatric: Normal Affect, Normal Mood Skin Exam: Warm, Dry, Intact, Normal Color, No Rash, Other (see extremities, eczema of hands bilaterally) Lymphatic: No Adenopathy Course - Vital Signs Last Recorded V/S: Last Vital Signs Temp 97.9 F 06/07/17 16:11 Pulse 109 H 06/07/17 16:11 Resp 18 06/07/17 16:11 BP 159/89 H 06/07/17 16:11 Pulse Ox 100 06/07/17 16:11 - Orders/Labs/Meds Orders: Active Orders 24 hr Category Date Time Status Peripheral IV Care [RC] . DIRECTED Care 06/07/17 16:40 Active CULTURE BLOOD [BC] Stat Lab 06/07/17 16:50 Received CULTURE BLOOD [BC] Stat Lab 06/07/17 16:58 Received DRUG SCREEN URINE BIORAD [URCHEM] Stat Lab 06/07/17 16:56 Ordered UA W/MICROSCOPIC [URIN] Stat Lab 06/07/17 16:56 Ordered Sodium Chloride 0.9% [Saline Flush] Med 06/07/17 16:39 Active 10 ml FLUSH ASDIRECTED PRN Blood Culture x2 Reflex Set [OM.PC] Stat Oth 06/07/17 16:39 Ordered Peripheral IV Insertion Adult [OM.PC] Stat Oth 06/07/17 16:39 Ordered Medication Orders Sodium Chloride (Saline Flush) 10 ml FLUSH ASDIRECTED PRN PRN Reason: Keep Vein Open Last Admin: 06/07/17 17:04 Dose: 10 ml Labs: Laboratory Tests 06/07/17 06/07/17 06/07/17 Range/Units 16:50 16:50 16:50 WBC 8.6 (5.0-10.0) 10^3/uL RBC 5.39 (4.6-6.2) 10^6/uL Hgb 15.9 D (14.0-18.0) g/dL Hct 45.7 (40.0-54.0) % MCV 84.8 D (80-100) fL MCH 29.5 (27.0-34.0) pg MCHC 34.8 (33.0-35.0) g/dL Plt Count 190 (150-450) 10^3/uL Neut % (Auto) 80.2 H (42.2-75.2) % Lymph % (Auto) 8.9 L (20.5-50.1) % [place] % (Auto) 6.0 (2-8) % Eos % (Auto) 4.6 H (1.0-3.0) % Baso % (Auto) 0.3 (0.0-1.0) % Sodium 132 L (135-145) mmol/L Potassium 3.7 (3.6-5.0) mmol/L Chloride 102 (101-111) mmol/L Carbon Dioxide 19.0 L (21.0-31.0) mmol/L Anion Gap 14.7 BUN 15 (7-18) mg/dL Creatinine 1.1 (0.6-1.3) mg/dL Est Cr Clr Drug Dosing TNP Estimated GFR (MDRD) > 60 BUN/Creatinine Ratio 13.63 Glucose 264 H (74-105) mg/dL Lactic Acid 2.0 (0.5-2.2) mmol/L Calcium 9.0 (8.4-10.2) mg/dl Total Bilirubin 1.6 H (0.2-1.0) mg/dL AST 29 (10-42) IU/L ALT 14 (10-60) IU/L Alkaline Phosphatase 105 (42-121) IU/L Total Protein 7.9 (6.7-8.2) g/dl Albumin 4.0 (3.2-5.5) g/dl Globulin 3.9 Albumin/Globulin Ratio 1.03 Amylase 47 (28-100) U/L Lipase 17 L (22-51) U/L Urine Color (YELLOW) Urine Appearance (CLEAR) Urine pH (5.0-9.0) Ur Specific [place] (1.005-1.030) Urine Protein (NEGATIVE) Urine Glucose (UA) (NEGATIVE) Urine Ketones (NEGATIVE) Urine Occult Blood (NEGATIVE) Urine Nitrite (NEGATIVE) Urine Bilirubin (NEGATIVE) Urine Urobilinogen (0.2-1.0) mg/dL Ur Leukocyte Esterase (NEGATIVE) Urine RBC /HPF Urine WBC (0-5/HPF) /HPF Ur Epithelial Cells /HPF Urine Bacteria (0-FEW/HPF) /HPF Urine Mucus /LPF Urine Other Urine Opiates Screen (NEGATIVE) Ur Oxycodone Screen (NEGATIVE) Urine Methadone Screen (NEGATIVE) Ur Barbiturates Screen (NEGATIVE) U Tricyclic Antidepress (NEGATIVE) Ur Phencyclidine Scrn (NEGATIVE) Ur Amphetamine Screen (NEGATIVE) U Methamphetamines Scrn (NEGATIVE) Urine MDMA Screen (NEGATIVE) U Benzodiazepines Scrn (NEGATIVE) Urine Cocaine Screen (NEGATIVE) U Marijuana (THC) Screen (NEGATIVE) Ethyl Alcohol < 5 mg/dL 06/07/17 06/07/17 Range/Units 16:56 16:56 WBC (5.0-10.0) 10^3/uL RBC (4.6-6.2) 10^6/uL Hgb (14.0-18.0) g/dL Hct (40.0-54.0) % MCV (80-100) fL MCH (27.0-34.0) pg MCHC (33.0-35.0) g/dL Plt Count (150-450) 10^3/uL Neut % (Auto) (42.2-75.2) % Lymph % (Auto) (20.5-50.1) % [place] % (Auto) (2-8) % Eos % (Auto) (1.0-3.0) % Baso % (Auto) (0.0-1.0) % Sodium (135-145) mmol/L Potassium (3.6-5.0) mmol/L Chloride (101-111) mmol/L Carbon Dioxide (21.0-31.0) mmol/L Anion Gap BUN (7-18) mg/dL Creatinine (0.6-1.3) mg/dL Est Cr Clr Drug Dosing Estimated GFR (MDRD) BUN/Creatinine Ratio Glucose (74-105) mg/dL Lactic Acid (0.5-2.2) mmol/L Calcium (8.4-10.2) mg/dl Total Bilirubin (0.2-1.0) mg/dL AST (10-42) IU/L ALT (10-60) IU/L Alkaline Phosphatase (42-121) IU/L Total Protein (6.7-8.2) g/dl Albumin (3.2-5.5) g/dl Globulin Albumin/Globulin Ratio Amylase (28-100) U/L Lipase (22-51) U/L Urine Color Yellow (YELLOW) Urine Appearance Clear (CLEAR) Urine pH 5.0 (5.0-9.0) Ur Specific [place] <= 1.005 (1.005-1.030) Urine Protein 100 H (NEGATIVE) Urine Glucose (UA) Negative (NEGATIVE) Urine Ketones Negative (NEGATIVE) Urine Occult Blood Trace-intact H (NEGATIVE) Urine Nitrite Negative (NEGATIVE) Urine Bilirubin Negative (NEGATIVE) Urine Urobilinogen 0.2 (0.2-1.0) mg/dL Ur Leukocyte Esterase Negative (NEGATIVE) Urine RBC 0-5 /HPF Urine WBC 0-5 (0-5/HPF) /HPF Ur Epithelial Cells Rare /HPF Urine Bacteria Rare (0-FEW/HPF) /HPF Urine Mucus Rare /LPF Urine Other See note Urine Opiates Screen Negative (NEGATIVE) Ur Oxycodone Screen Negative (NEGATIVE) Urine Methadone Screen Negative (NEGATIVE) Ur Barbiturates Screen Negative (NEGATIVE) U Tricyclic Antidepress Negative (NEGATIVE) Ur Phencyclidine Scrn Negative (NEGATIVE) Ur Amphetamine Screen Negative (NEGATIVE) U Methamphetamines Scrn Negative (NEGATIVE) Urine MDMA Screen Negative (NEGATIVE) U Benzodiazepines Scrn Negative (NEGATIVE) Urine Cocaine Screen Negative (NEGATIVE) U Marijuana (THC) Screen Positive H (NEGATIVE) Ethyl Alcohol mg/dL Meds: Medications Generic Name Dose Route Start Last Admin Trade Name Freq PRN Reason Stop Dose Admin Sodium Chloride 10 ml 06/07/17 16:39 06/07/17 17:04 Saline Flush FLUSH 10 ml ASDIRECTED PRN Administration Keep Vein Open Discontinued Medications Generic Name Dose Route Start Last Admin Trade Name Freq PRN Reason Stop Dose Admin Sodium Chloride 1,000 mls @ 999 mls/hr 06/07/17 16:40 06/07/17 17:04 Normal Saline IV 06/07/17 17:40 999 mls/hr .BOLUS ONE Administration Ondansetron HCl 4 mg 06/07/17 16:40 06/07/17 17:04 Zofran IV 06/07/17 16:41 4 mg ONETIME ONE Administration Departure - Departure Time of Disposition: 18:01 Disposition: Home, Self-Care 01 Condition: Fair Clinical Impression: Gastroenteritis, Gastroparesis due to DM Vomiting Qualifiers: Vomiting type: unspecified Vomiting Intractability: unspecified Nausea presence : with nausea Qualified Code(s): R11.2 - Nausea with vomiting, unspecified - Discharge Information Instructions: Nausea and Vomiting, Adult, [id number], Gastroparesis Forms: ED Department Discharge Additional Instructions: Drink plenty of fluids Follow up with your primary care facility RX: Zofran - My Orders Last 24 Hours: My Active Orders 06/07/17 16:39 Sodium Chloride 0.9% [Saline Flush] 10 ml FLUSH ASDIRECTED PRN Blood Culture x2 Reflex Set [OM.PC] Stat Peripheral IV Insertion Adult [OM.PC] Stat 06/07/17 16:40 Peripheral IV Care [RC] . DIRECTED 06/07/17 16:50 CULTURE BLOOD [BC] Stat 06/07/17 16:56 DRUG SCREEN URINE BIORAD [URCHEM] Stat UA W/MICROSCOPIC [URIN] Stat 06/07/17 16:58 CULTURE BLOOD [BC] Stat - Assessment/Plan Last 24 Hours: My Active Orders 06/07/17 16:39 Sodium Chloride 0.9% [Saline Flush] 10 ml FLUSH ASDIRECTED PRN Blood Culture x2 Reflex Set [OM.PC] Stat Peripheral IV Insertion Adult [OM.PC] Stat 06/07/17 16:40 Peripheral IV Care [RC] . DIRECTED 06/07/17 16:50 CULTURE BLOOD [BC] Stat 06/07/17 16:56 DRUG SCREEN URINE BIORAD [URCHEM] Stat UA W/MICROSCOPIC [URIN] Stat 06/07/17 16:58 CULTURE BLOOD [BC] Stat
[2017-06-07] MEDS ORDERED: Sodium Chloride 0.9% 10 ML Syringe FLUSH PRN (16:39)
[2017-06-07] MEDS ORDERED: Ondansetron 4 MG/2 ML SDV IV ONE (16:40)
[2017-06-07] MEDS ORDERED: Sodium Chloride 0.9% 1,000 ML IV ONE (16:40)
[2017-06-07 17:29] LABS: CHLORIDE,CL 102 mmol/L (101-111); SODIUM,NA 132 mmol/L (135-145)
== END 2017-06-07 18:20 | disposition home or self-care (01) ==
LOC: DL.ED 16:08
DX: E11.43 Type 2 diabetes mellitus with diabetic autonomic (poly)neuropathy (principal); K31.84 Gastroparesis; K52.9 Noninfective gastroenteritis and colitis, unspecified; I10 Essential (primary) hypertension; Z79.899 Other long term (current) drug therapy; Z88.8 Allergy status to other drugs, medicaments and biological substances; Z79.4 Long term (current) use of insulin; Z87.891 Personal history of nicotine dependence
CPT/HCPCS: 36415; 80053; 80305; 81001; 82150; 83605; 83690; 85025; 87040; 96361; 96374; 99284; G0480; J2405; J7030; J7050

== ENCOUNTER 2018-05-01 14:45 | Emergency (ER) | payer MEDICARE, MEDICAID ==
[2018-05-01 14:54] VITALS: BP 144/89
--- NOTE | 2018-05-01 15:17 | EDM.PDOC ---
ED HPI GENERAL MEDICAL PROBLEM - General Chief Complaint: Flank Pain Stated Complaint: KIDNEY PAIN [id number] Time Seen by Provider: 05/01/18 14:49 Source of Information: Reports: Patient, EMS, EMS Notes Reviewed, RN, RN Notes Reviewed History Limitations: Reports: No Limitations - History of Present Illness INITIAL COMMENTS - FREE TEXT/NARRATIVE: Pt to ER per [facility] with c/o left sided flank pain that began suddenly today while putting together a piece of furniture. Patient states he is diabetic, and has had both legs amputated. He states he has recently been having frequency and urgency with urination, fever and chills, and nausea/vomiting. Onset: Today, Sudden Duration: Constant Location: Reports: Back Quality: Reports: Stabbing Severity: Moderate Improves with: Reports: None Worsens with: Reports: None Associated Symptoms: Reports: Fever/Chills, Nausea/Vomiting Left Flank Pain Score (Numeric/FACES): 10 - Related Data Allergies Allergy/AdvReac Type Severity Reaction Status Date / Time phenobarbital Allergy Dizziness Verified 05/01/18 15:05 phenytoin sodium Allergy Cannot Verified 08/06/16 15:57 [From Dilantin] Remember Home Meds: Home Meds Insulin Detemir [Levemir] 6 units SQ BEDTIME 04/29/14 [History] levETIRAcetam [Keppra] 500 mg PO BIDMEALS 04/29/14 [History] Loperamide [Imodium] 6 mg PO DAILY 02/13/15 [History] Zolpidem [Ambien] 1 tab PO BEDTIME 06/07/17 [History] Past Medical History Cardiovascular History: Reports: Hypertension Gastrointestinal History: Reports: Gastritis, Other (See Below) Genitourinary History: Reports: UTI, Recurrent Musculoskeletal History: Reports: Amputation, Other (See Below) Other Musculoskeletal History: 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 Neurological History: Reports: Seizure Endocrine/Metabolic History: Reports: Diabetes, Type II - Past Surgical History Cardiovascular Surgical History: Reports: None GI Surgical History: Reports: Cholecystectomy Male Surgical History: Reports: None Endocrine Surgical History: Reports: None Neurological Surgical History: Reports: None Musculoskeletal Surgical History: Reports: Amputation Social & Family History - Family History Family Medical History: Noncontributory - Tobacco Use Smoking Status *Q: Former Smoker Used Tobacco, but Quit: Yes Month/Year Tobacco Last Used: 2018 - Caffeine Use Caffeine Use: Reports: Coffee, Soda - Recreational Drug Use Recreational Drug Use: Yes Drug Use in Last 12 Months: Yes Recreational Drug Type: Reports: Marijuana/Hashish Recreational Drug Use Frequency: Daily ED ROS GENERAL - Review of Systems Review Of Systems: ROS reveals no pertinent complaints other than HPI. ED EXAM, RENAL/ - Physical Exam Exam: See Below Exam Limited By: No Limitations General Appearance: Alert, WD/WN, Mild Distress Eye Exam: Bilateral Eye: EOMI, Normal Inspection Ears: Normal External Exam, Hearing Grossly Normal Nose: Normal Inspection Throat/Mouth: Normal Inspection, Normal Voice, No Airway Compromise Head: Atraumatic, Normocephalic Neck: Normal Inspection, Supple, Non-Tender, Full Range of Motion Respiratory/Chest: No Respiratory Distress, Lungs Clear, Normal Breath Sounds, No Accessory Muscle Use, Chest Non-Tender Cardiovascular: Normal Peripheral Pulses, Regular Rate, Rhythm, No Edema, No Gallop, No JVD, No Murmur, No Rub GI/Abdominal: Normal Bowel Sounds, Soft, No Organomegaly, No Distention, No Abnormal Bruit, No Mass, Pelvis Stable, Tender (RLQ, LLQ) (Male) Exam: Deferred Rectal (Males) Exam: Deferred Back Exam: Normal Inspection, Full Range of Motion, CVA Tenderness (L) Extremities: Other (Bilateral AKA) Neurological: Alert, Oriented, CN II-XII Intact, Normal Cognition, Normal Gait, Normal Reflexes, No Motor/Sensory Deficits Psychiatric: Normal Mood, Anxious Skin Exam: Warm, Dry, Intact, Normal Color, No Rash Lymphatic: No Adenopathy Course - Vital Signs Last Recorded V/S: Last Vital Signs Temp 97.6 F 05/01/18 14:49 Pulse 103 H 05/01/18 14:49 Resp 18 05/01/18 14:49 BP 144/89 H 05/01/18 14:49 Pulse Ox 99 05/01/18 14:49 - Orders/Labs/Meds Orders: Active Orders 24 hr Category Date Time Status CULTURE BLOOD [BC] Stat Lab 05/01/18 15:03 Received CULTURE BLOOD [BC] Stat Lab 05/01/18 15:07 Received Blood Culture x2 Reflex Set [OM.PC] Stat Oth 05/01/18 14:56 Ordered Labs: Laboratory Tests 05/01/18 05/01/18 05/01/18 Range/Units 15:03 15:03 15:03 WBC 10.1 H (5.0-10.0) 10^3/uL RBC 5.69 (4.6-6.2) 10^6/uL Hgb 16.9 (14.0-18.0) g/dL Hct 48.7 (40.0-54.0) % MCV 85.6 (80-100) fL MCH 29.7 (27.0-34.0) pg MCHC 34.7 (33.0-35.0) g/dL Plt Count 200 (150-450) 10^3/uL Neut % (Auto) 86.5 H (42.2-75.2) % Lymph % (Auto) 7.3 L (20.5-50.1) % [place] % (Auto) 4.7 (2-8) % Eos % (Auto) 1.1 (1.0-3.0) % Baso % (Auto) 0.4 (0.0-1.0) % Sodium 133 L (135-145) mmol/L Potassium 4.0 (3.6-5.0) mmol/L Chloride 98 L (101-111) mmol/L Carbon Dioxide 21.0 (21.0-31.0) mmol/L Anion Gap 18.0 BUN 17 (7-18) mg/dL Creatinine 1.2 (0.6-1.3) mg/dL Est Cr Clr Drug Dosing 83.79 mL/min Estimated GFR (MDRD) > 60 BUN/Creatinine Ratio 14.16 Glucose 240 H (74-105) mg/dL Lactic Acid 2.0 (0.5-2.2) mmol/L Calcium 9.3 (8.4-10.2) mg/dl Total Bilirubin 1.2 H (0.2-1.0) mg/dL AST 29 (10-42) IU/L ALT 17 (10-60) IU/L Alkaline Phosphatase 100 (42-121) IU/L Total Protein 7.9 (6.7-8.2) g/dl Albumin 4.3 (3.2-5.5) g/dl Globulin 3.6 Albumin/Globulin Ratio 1.19 Urine Color (YELLOW) Urine Appearance (CLEAR) Urine pH (5.0-9.0) Ur Specific [place] (1.005-1.030) Urine Protein (NEGATIVE) Urine Glucose (UA) (NEGATIVE) Urine Ketones (NEGATIVE) Urine Occult Blood (NEGATIVE) Urine Nitrite (NEGATIVE) Urine Bilirubin (NEGATIVE) Urine Urobilinogen (0.2-1.0) mg/dL Ur Leukocyte Esterase (NEGATIVE) Urine RBC /HPF Urine WBC (0-5/HPF) /HPF Ur Epithelial Cells /HPF Urine Bacteria (0-FEW/HPF) /HPF Urine Opiates Screen (NEGATIVE) Ur Oxycodone Screen (NEGATIVE) Urine Methadone Screen (NEGATIVE) Ur Barbiturates Screen (NEGATIVE) U Tricyclic Antidepress (NEGATIVE) Ur Phencyclidine Scrn (NEGATIVE) Ur Amphetamine Screen (NEGATIVE) U Methamphetamines Scrn (NEGATIVE) Urine MDMA Screen (NEGATIVE) U Benzodiazepines Scrn (NEGATIVE) Urine Cocaine Screen (NEGATIVE) U Marijuana (THC) Screen (NEGATIVE) Ethyl Alcohol < 5 mg/dL 05/01/18 05/01/18 Range/Units 15:19 15:19 WBC (5.0-10.0) 10^3/uL RBC (4.6-6.2) 10^6/uL Hgb (14.0-18.0) g/dL Hct (40.0-54.0) % MCV (80-100) fL MCH (27.0-34.0) pg MCHC (33.0-35.0) g/dL Plt Count (150-450) 10^3/uL Neut % (Auto) (42.2-75.2) % Lymph % (Auto) (20.5-50.1) % [place] % (Auto) (2-8) % Eos % (Auto) (1.0-3.0) % Baso % (Auto) (0.0-1.0) % Sodium (135-145) mmol/L Potassium (3.6-5.0) mmol/L Chloride (101-111) mmol/L Carbon Dioxide (21.0-31.0) mmol/L Anion Gap BUN (7-18) mg/dL Creatinine (0.6-1.3) mg/dL Est Cr Clr Drug Dosing mL/min Estimated GFR (MDRD) BUN/Creatinine Ratio Glucose (74-105) mg/dL Lactic Acid (0.5-2.2) mmol/L Calcium (8.4-10.2) mg/dl Total Bilirubin (0.2-1.0) mg/dL AST (10-42) IU/L ALT (10-60) IU/L Alkaline Phosphatase (42-121) IU/L Total Protein (6.7-8.2) g/dl Albumin (3.2-5.5) g/dl Globulin Albumin/Globulin Ratio Urine Color Yellow (YELLOW) Urine Appearance Clear (CLEAR) Urine pH 5.5 (5.0-9.0) Ur Specific [place] 1.020 (1.005-1.030) Urine Protein >=300 H (NEGATIVE) Urine Glucose (UA) 100 H (NEGATIVE) Urine Ketones Negative (NEGATIVE) Urine Occult Blood Small H (NEGATIVE) Urine Nitrite Negative (NEGATIVE) Urine Bilirubin Negative (NEGATIVE) Urine Urobilinogen 0.2 (0.2-1.0) mg/dL Ur Leukocyte Esterase Negative (NEGATIVE) Urine RBC 0-5 /HPF Urine WBC 0-5 (0-5/HPF) /HPF Ur Epithelial Cells Occasional /HPF Urine Bacteria Few (0-FEW/HPF) /HPF Urine Opiates Screen Negative (NEGATIVE) Ur Oxycodone Screen Positive H (NEGATIVE) Urine Methadone Screen Negative (NEGATIVE) Ur Barbiturates Screen Negative (NEGATIVE) U Tricyclic Antidepress Negative (NEGATIVE) Ur Phencyclidine Scrn Negative (NEGATIVE) Ur Amphetamine Screen Negative (NEGATIVE) U Methamphetamines Scrn Negative (NEGATIVE) Urine MDMA Screen Negative (NEGATIVE) U Benzodiazepines Scrn Negative (NEGATIVE) Urine Cocaine Screen Negative (NEGATIVE) U Marijuana (THC) Screen Positive H (NEGATIVE) Ethyl Alcohol mg/dL Meds: Medications Discontinued Medications Generic Name Dose Route Start Last Admin Trade Name Freq PRN Reason Stop Dose Admin Sodium Chloride 1,000 mls @ 999 mls/hr 05/01/18 15:32 05/01/18 15:39 Normal Saline IV 05/01/18 16:32 999 mls/hr .BOLUS ONE Administration Ketorolac Tromethamine 30 mg 05/01/18 15:32 05/01/18 15:39 Toradol IVPUSH 05/01/18 15:33 30 mg ONETIME ONE Administration Departure - Departure Time of Disposition: 16:58 Disposition: Home, Self-Care 01 Condition: Fair Clinical Impression: Muscle strain - Discharge Information *PRESCRIPTION DRUG MONITORING PROGRAM REVIEWED*: No *COPY OF PRESCRIPTION DRUG MONITORING REPORT IN PATIENT NORRIS: No Instructions: Flank Pain, Adult, [id number], Muscle Strain, [id number] Forms: ED Department Discharge Additional Instructions: May use Tylenol as directed for pain Drink plenty of water Follow up with your primary care facility - My Orders Last 24 Hours: My Active Orders 05/01/18 14:56 Blood Culture x2 Reflex Set [OM.PC] Stat 05/01/18 15:03 CULTURE BLOOD [BC] Stat 05/01/18 15:07 CULTURE BLOOD [BC] Stat - Assessment/Plan Last 24 Hours: My Active Orders 05/01/18 14:56 Blood Culture x2 Reflex Set [OM.PC] Stat 05/01/18 15:03 CULTURE BLOOD [BC] Stat 05/01/18 15:07 CULTURE BLOOD [BC] Stat
[2018-05-01] MEDS ORDERED: Ketorolac 30 MG/ML SDV IVPUSH ONE (15:32)
[2018-05-01] MEDS ORDERED: Sodium Chloride 0.9% 1,000 ML IV ONE (15:32)
[2018-05-01 15:39] LABS: CHLORIDE,CL 98 mmol/L (101-111); SODIUM,NA 133 mmol/L (135-145)
== END 2018-05-01 17:26 | disposition home or self-care (01) ==
LOC: DL.ED 14:45
DX: S39.011A Strain of muscle, fascia and tendon of abdomen, initial encounter (principal); E11.9 Type 2 diabetes mellitus without complications; Z88.8 Allergy status to other drugs, medicaments and biological substances; Z79.4 Long term (current) use of insulin; Z79.899 Other long term (current) drug therapy; Z87.891 Personal history of nicotine dependence; X50.9XXA Other and unspecified overexertion or strenuous movements or postures, initial encounter
CPT/HCPCS: 36415; 80053; 80305; 81001; 83605; 85025; 87040; 96365; 96375; 99284; G0480; J1885; J7030

== ENCOUNTER 2018-07-09 14:38 | Observation (INO) | payer MEDICARE, MEDICAID ==
[2018-07-09] MEDS ORDERED: Sodium Chloride 0.9% 1,000 ML IV ONE ×3 (14:51→16:57)
[2018-07-09] MEDS ORDERED: Ondansetron 4 MG/2 ML SDV IV ONE (14:51)
--- NOTE | 2018-07-09 14:51 | EDM.PDOC ---
<[email or web address] - Last Filed: 07/09/18 16:09> ED HPI GENERAL MEDICAL PROBLEM - General Chief Complaint: Abdominal Pain Stated Complaint: SICK Time Seen by Provider: 07/09/18 14:50 Source of Information: Reports: Patient, RN History Limitations: Reports: No Limitations - History of Present Illness INITIAL COMMENTS - FREE TEXT/NARRATIVE: Patient is a 43 year old male presenting with abdominal pain, vomiting, and diarrhea. Patient reports his symptoms of nausea, abdominal cramping/pain, and vomiting began this morning. He is a diabetic, double lower extremity amputee, and has epilepsy. He states this happens often and when it does, he presents to the ER to get fluids and nausea medication. He reports associated symptoms of fever and chills. He denies blood in his vomit, sputum, and stool. He denies chest pain, shortness of breath, headache, or infected wounds. Onset: Today - Related Data Allergies Allergy/AdvReac Type Severity Reaction Status Date / Time phenobarbital Allergy Dizziness Verified 07/09/18 15:12 phenytoin sodium Allergy Cannot Verified 07/09/18 15:12 [From Dilantin] Remember Home Meds: Home Meds Insulin Detemir [Levemir] 6 units SQ BEDTIME 04/29/14 [History] levETIRAcetam [Keppra] 500 mg PO BIDMEALS 04/29/14 [History] Loperamide [Imodium] 6 mg PO DAILY 02/13/15 [History] Zolpidem [Ambien] 1 tab PO BEDTIME 06/07/17 [History] Past Medical History Cardiovascular History: Reports: Hypertension Gastrointestinal History: Reports: Gastritis, Other (See Below) Genitourinary History: Reports: UTI, Recurrent Musculoskeletal History: Reports: Amputation, Other (See Below) Other Musculoskeletal History: 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 Neurological History: Reports: Seizure Endocrine/Metabolic History: Reports: Diabetes, Type II - Past Surgical History Cardiovascular Surgical History: Reports: None GI Surgical History: Reports: Cholecystectomy Male Surgical History: Reports: None Endocrine Surgical History: Reports: None Neurological Surgical History: Reports: None Musculoskeletal Surgical History: Reports: Amputation Social & Family History - Family History Family Medical History: Noncontributory - Caffeine Use Caffeine Use: Reports: Coffee, Soda ED ROS GENERAL - Review of Systems Review Of Systems: ROS reveals no pertinent complaints other than HPI. ED EXAM, GI/ABD - Physical Exam Exam: See Below Exam Limited By: No Limitations General Appearance: Alert, Mild Distress Eyes: Bilateral: Normal Appearance Ears: Normal External Exam Nose: Normal Inspection Throat/Mouth: Normal Inspection Head: Atraumatic, Normocephalic Neck: Normal Inspection, Supple, Non-Tender Respiratory/Chest: No Respiratory Distress, Lungs Clear Cardiovascular: Regular Rate, Rhythm GI/Abdominal Exam: Soft, Non-Tender, No Distention, No Mass, Other (hypoactive bowel sounds) Extremities: Other (bilateral lower extremity amputations) Neurological: Alert, Oriented Skin Exam: Warm, Diaphoretic Course - Vital Signs Last Recorded V/S: Last Vital Signs Temp 35.1 C L 07/09/18 14:51 Pulse 111 H 07/09/18 14:51 Resp 20 07/09/18 14:51 BP 160/103 H 07/09/18 14:51 Pulse Ox 100 07/09/18 14:51 - Orders/Labs/Meds Orders: Active Orders 24 hr Category Date Time Status Blood Glucose Check, Bedside [RC] ONETIME Care 07/09/18 14:50 Active Peripheral IV Care [RC] . DIRECTED Care 07/09/18 14:51 Active ABG [BLOOD GAS ARTERIAL] [BG] Stat Lab 07/09/18 15:45 Ordered CULTURE BLOOD [BC] Stat Lab 07/09/18 15:01 Received CULTURE BLOOD [BC] Stat Lab 07/09/18 15:07 Received Sodium Chloride 0.9% [Saline Flush] Med 07/09/18 14:50 Active 10 ml FLUSH ASDIRECTED PRN Blood Culture x2 Reflex Set [OM.PC] Stat Oth 07/09/18 14:50 Ordered Peripheral IV Insertion Adult [OM.PC] Stat Oth 07/09/18 14:50 Ordered Medication Orders Sodium Chloride (Saline Flush) 10 ml FLUSH ASDIRECTED PRN PRN Reason: Keep Vein Open Last Admin: 07/09/18 15:07 Dose: 10 ml Labs: Laboratory Tests 07/09/18 07/09/18 07/09/18 Range/Units 14:50 14:50 14:57 WBC (5.0-10.0) 10^3/uL RBC (4.6-6.2) 10^6/uL Hgb (14.0-18.0) g/dL Hct (40.0-54.0) % MCV (80-100) fL MCH (27.0-34.0) pg MCHC (33.0-35.0) g/dL Plt Count (150-450) 10^3/uL Neut % (Auto) (42.2-75.2) % Lymph % (Auto) (20.5-50.1) % [place] % (Auto) (2-8) % Eos % (Auto) (1.0-3.0) % Baso % (Auto) (0.0-1.0) % Sodium (135-145) mmol/L Potassium (3.6-5.0) mmol/L Chloride (101-111) mmol/L Carbon Dioxide (21.0-31.0) mmol/L Anion Gap BUN (7-18) mg/dL Creatinine (0.6-1.3) mg/dL Est Cr Clr Drug Dosing Estimated GFR (MDRD) BUN/Creatinine Ratio Glucose (74-105) mg/dL POC Glucose 209 H (70-105) mg/dl Lactic Acid (0.5-2.2) mmol/L Calcium (8.4-10.2) mg/dl Total Bilirubin (0.2-1.0) mg/dL AST (10-42) IU/L ALT (10-60) IU/L Alkaline Phosphatase (42-121) IU/L Total Protein (6.7-8.2) g/dl Albumin (3.2-5.5) g/dl Globulin Albumin/Globulin Ratio Amylase (28-100) U/L Lipase (22-51) U/L Urine Color Yellow (YELLOW) Urine Appearance Clear (CLEAR) Urine pH 5.5 (5.0-9.0) Ur Specific [place] >= 1.030 (1.005-1.030) Urine Protein >=300 H (NEGATIVE) Urine Glucose (UA) Negative (NEGATIVE) Urine Ketones Negative (NEGATIVE) Urine Occult Blood Moderate H (NEGATIVE) Urine Nitrite Negative (NEGATIVE) Urine Bilirubin Negative (NEGATIVE) Urine Urobilinogen 0.2 (0.2-1.0) mg/dL Ur Leukocyte Esterase Negative (NEGATIVE) Urine RBC 0-5 /HPF Urine WBC 0-5 (0-5/HPF) /HPF Ur Epithelial Cells Rare /HPF Amorphous Sediment Moderate (0/HPF) /HPF Urine Bacteria Few (0-FEW/HPF) /HPF Hyaline Casts Moderate H /LPF Urine Mucus Moderate H /LPF Urine Other See note Urine Opiates Screen Negative (NEGATIVE) Ur Oxycodone Screen Negative (NEGATIVE) Urine Methadone Screen Negative (NEGATIVE) Ur Barbiturates Screen Negative (NEGATIVE) U Tricyclic Antidepress Negative (NEGATIVE) Ur Phencyclidine Scrn Negative (NEGATIVE) Ur Amphetamine Screen Negative (NEGATIVE) U Methamphetamines Scrn Negative (NEGATIVE) Urine MDMA Screen Negative (NEGATIVE) U Benzodiazepines Scrn Negative (NEGATIVE) Urine Cocaine Screen Negative (NEGATIVE) U Marijuana (THC) Screen Positive H (NEGATIVE) Ethyl Alcohol mg/dL Ketones 07/09/18 07/09/18 07/09/18 Range/Units 15:01 15:01 15:01 WBC 10.1 H (5.0-10.0) 10^3/uL RBC 5.69 (4.6-6.2) 10^6/uL Hgb 17.2 (14.0-18.0) g/dL Hct 48.7 (40.0-54.0) % MCV 85.6 (80-100) fL MCH 30.2 (27.0-34.0) pg MCHC 35.3 H (33.0-35.0) g/dL Plt Count 206 (150-450) 10^3/uL Neut % (Auto) 81.8 H (42.2-75.2) % Lymph % (Auto) 11.4 L (20.5-50.1) % [place] % (Auto) 5.3 (2-8) % Eos % (Auto) 0.9 L (1.0-3.0) % Baso % (Auto) 0.6 (0.0-1.0) % Sodium 136 (135-145) mmol/L Potassium 4.0 (3.6-5.0) mmol/L Chloride 105 (101-111) mmol/L Carbon Dioxide 16.0 L (21.0-31.0) mmol/L Anion Gap 19.0 BUN 17 (7-18) mg/dL Creatinine 1.2 (0.6-1.3) mg/dL Est Cr Clr Drug Dosing TNP Estimated GFR (MDRD) > 60 BUN/Creatinine Ratio 14.16 Glucose 238 H (74-105) mg/dL POC Glucose (70-105) mg/dl Lactic Acid 2.1 (0.5-2.2) mmol/L Calcium 9.7 (8.4-10.2) mg/dl Total Bilirubin 1.2 H (0.2-1.0) mg/dL AST 26 (10-42) IU/L ALT 14 (10-60) IU/L Alkaline Phosphatase 105 (42-121) IU/L Total Protein 8.4 H (6.7-8.2) g/dl Albumin 4.5 (3.2-5.5) g/dl Globulin 3.9 Albumin/Globulin Ratio 1.15 Amylase 120 H (28-100) U/L Lipase 49 (22-51) U/L Urine Color (YELLOW) Urine Appearance (CLEAR) Urine pH (5.0-9.0) Ur Specific [place] (1.005-1.030) Urine Protein (NEGATIVE) Urine Glucose (UA) (NEGATIVE) Urine Ketones (NEGATIVE) Urine Occult Blood (NEGATIVE) Urine Nitrite (NEGATIVE) Urine Bilirubin (NEGATIVE) Urine Urobilinogen (0.2-1.0) mg/dL Ur Leukocyte Esterase (NEGATIVE) Urine RBC /HPF Urine WBC (0-5/HPF) /HPF Ur Epithelial Cells /HPF Amorphous Sediment (0/HPF) /HPF Urine Bacteria (0-FEW/HPF) /HPF Hyaline Casts /LPF Urine Mucus /LPF Urine Other Urine Opiates Screen (NEGATIVE) Ur Oxycodone Screen (NEGATIVE) Urine Methadone Screen (NEGATIVE) Ur Barbiturates Screen (NEGATIVE) U Tricyclic Antidepress (NEGATIVE) Ur Phencyclidine Scrn (NEGATIVE) Ur Amphetamine Screen (NEGATIVE) U Methamphetamines Scrn (NEGATIVE) Urine MDMA Screen (NEGATIVE) U Benzodiazepines Scrn (NEGATIVE) Urine Cocaine Screen (NEGATIVE) U Marijuana (THC) Screen (NEGATIVE) Ethyl Alcohol < 5 mg/dL Ketones Negative Meds: Medications Generic Name Dose Route Start Last Admin Trade Name Freq PRN Reason Stop Dose Admin Sodium Chloride 10 ml 07/09/18 14:50 07/09/18 15:07 Saline Flush FLUSH 10 ml ASDIRECTED PRN Administration Keep Vein Open Discontinued Medications Generic Name Dose Route Start Last Admin Trade Name Freq PRN Reason Stop Dose Admin Diphenhydramine HCl 25 mg 07/09/18 15:12 07/09/18 15:18 Benadryl IVPUSH 07/09/18 15:13 25 mg ONETIME ONE Administration Hydromorphone HCl 1 mg 07/09/18 15:12 07/09/18 15:17 Dilaudid IVPUSH 07/09/18 15:13 1 mg ONETIME ONE Administration Sodium Chloride 1,000 mls @ 999 mls/hr 07/09/18 14:51 07/09/18 15:06 Normal Saline IV 07/09/18 15:51 999 mls/hr .BOLUS ONE Administration Sodium Chloride 1,000 mls @ 999 mls/hr 07/09/18 15:12 Normal Saline IV 07/09/18 16:12 .BOLUS ONE Metoclopramide HCl 10 mg 07/09/18 15:11 07/09/18 15:18 Reglan IVPUSH 07/09/18 15:12 10 mg ONETIME ONE Administration Ondansetron HCl 4 mg 07/09/18 14:51 07/09/18 15:07 Zofran IV 07/09/18 14:52 4 mg ONETIME ONE Administration - Re-Assessments/Exams Free Text/Narrative Re-Assessment/Exam: 07/09/18 16:10 Arterial Blood Gas: -pH 7.31 -pCO2 40.2 -pO2 84 -cHCO3 19.5 -cCO2 17.3 Departure - Departure Time of Disposition: 16:12 Disposition: Admitted As Inpatient 64 Condition: Serious Clinical Impression: Gastroparesis due to DM, Acidosis due to type 1 diabetes mellitus - Discharge Information *PRESCRIPTION DRUG MONITORING PROGRAM REVIEWED*: No *COPY OF PRESCRIPTION DRUG MONITORING REPORT IN PATIENT NORRIS: No Forms: ED Department Discharge Care Plan Goals: 1. Admit to observation on Med-Surg floor -Dr. Callejas accepting - My Orders Last 24 Hours: My Active Orders 07/09/18 14:50 Blood Glucose Check, Bedside [RC] ONETIME Sodium Chloride 0.9% [Saline Flush] 10 ml FLUSH ASDIRECTED PRN Blood Culture x2 Reflex Set [OM.PC] Stat Peripheral IV Insertion Adult [OM.PC] Stat 07/09/18 14:51 Peripheral IV Care [RC] . DIRECTED 07/09/18 15:01 CULTURE BLOOD [BC] Stat 07/09/18 15:07 CULTURE BLOOD [BC] Stat 07/09/18 15:45 ABG [BLOOD GAS ARTERIAL] [BG] Stat - Assessment/Plan Last 24 Hours: My Active Orders 07/09/18 14:50 Blood Glucose Check, Bedside [RC] ONETIME Sodium Chloride 0.9% [Saline Flush] 10 ml FLUSH ASDIRECTED PRN Blood Culture x2 Reflex Set [OM.PC] Stat Peripheral IV Insertion Adult [OM.PC] Stat 07/09/18 14:51 Peripheral IV Care [RC] . DIRECTED 07/09/18 15:01 CULTURE BLOOD [BC] Stat 07/09/18 15:07 CULTURE BLOOD [BC] Stat 07/09/18 15:45 ABG [BLOOD GAS ARTERIAL] [BG] Stat Assessment:: Patient is a 43 year old male with significant medical history of diabetes, bilateral lower extremity amputations, and epilepsy who presents for recurrent abdominal pain, nausea, vomiting and diarrhea. Plan: 1. CBC, CMP, amylase, lipase, lactic acid, ketones, Urinalysis, Drug screen, ethanol level, and blood cultures. 2. Treatment with IV rehydration, ondansetron, and raglan was given. <Kel Bingham - Last Filed: 07/09/18 16:16> Course - Re-Assessments/Exams Free Text/Narrative Re-Assessment/Exam: 07/09/18 16:15 I personally performed or re-performed the physical examination and medical decision making. I have verified all student documentation or findings, including history, physical exam and/or medical decision making.
[2018-07-09] MEDS: Sodium Chloride 0.9% 10 ML Syringe FLUSH PRN (15:07)
[2018-07-09] MEDS ORDERED: Metoclopramide 10 MG/2 ML SDV IVPUSH ONE (15:11)
[2018-07-09] MEDS ORDERED: HYDROmorphone 1 MG/ML Syringe IVPUSH ONE (15:12)
[2018-07-09] MEDS ORDERED: diphenhydrAMINE 50 MG/ML SDV IVPUSH ONE (15:12)
[2018-07-09 15:39] LABS: CHLORIDE,CL 105 mmol/L (101-111); SODIUM,NA 136 mmol/L (135-145)
[2018-07-09 15:57] LABS: BASE EXCESS ARTERIAL -6 mmol/L ((-2)-(+3)); BICARBONATE,ARTERIAL 19.5 mmol/L (22-26); O2 DELIVERY DEVICE ROOM AIR; O2 SATURATION ARTERIAL 96 % (95-100); PCO2 ARTERIAL 40 mmHg (35-45); PO2 ARTERIAL 84 mmHg (70-100)
[2018-07-09] MEDS ORDERED: Sodium Chloride 0.9% 10 ML Syringe FLUSH PRN (16:57)
[2018-07-09] MEDS ORDERED: Ondansetron 4 MG/2 ML SDV IV PRN (17:03)
--- NOTE | 2018-07-09 17:39 | PCM.HP ---
H&P History of Present Illness - General Date of Service: 07/09/18 Admit Problem/Dx: Admission Diagnosis/Problem Admission Diagnosis/Problem Dehydration Source of Information: Patient History Limitations: Reports: No Limitations - History of Present Illness Initial Comments - Free Text/Narative: 43 yo M with PMH of DM, gastroparesis, HTN, BKA, recurrent UTI, seizure disorder who p/w nausea/vomiting and hyperglycemia. Patient developed nausea and vomiting yesterday evening that has worsened through today Vomitus was non-bloody, non-bilious. No diarrhea, no CP, no SOB, no abd pain. Symptoms were relieved by antiemetics administered in the ED Feels better now Labwork showed hyperglycemia, no ketonuria, mild acidosis. Admitted for IV fluid hydration - Related Data Allergies/Adverse Reactions: Allergies Allergy/AdvReac Type Severity Reaction Status Date / Time phenobarbital Allergy Dizziness Verified 07/09/18 15:12 phenytoin sodium Allergy Cannot Verified 07/09/18 15:12 [From Dilantin] Remember Home Medications: Home Meds Insulin Detemir [Levemir] 6 units SQ BEDTIME 04/29/14 [History] levETIRAcetam [Keppra] 500 mg PO BIDMEALS 04/29/14 [History] Loperamide [Imodium] 6 mg PO DAILY 02/13/15 [History] Pioglitazone HCl 7.5 mg PO DAILY 07/09/18 [History] traZODone HCl [Trazodone HCl] 50 mg PO BEDTIME 07/09/18 [History] Past Medical History Cardiovascular History: Reports: Hypertension Gastrointestinal History: Reports: Gastritis, Other (See Below) Genitourinary History: Reports: UTI, Recurrent Musculoskeletal History: Reports: Amputation, Other (See Below) Other Musculoskeletal History: 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 Neurological History: Reports: Seizure Endocrine/Metabolic History: Reports: Diabetes, Type II - Past Surgical History Cardiovascular Surgical History: Reports: None GI Surgical History: Reports: Cholecystectomy Male Surgical History: Reports: None Endocrine Surgical History: Reports: None Neurological Surgical History: Reports: None Musculoskeletal Surgical History: Reports: Amputation Social & Family History - Family History Family Medical History: Noncontributory - Tobacco Use Smoking Status *Q: Light Tobacco Smoker Years of Tobacco use: 30 Packs/Tins Daily: 0.5 Used Tobacco, but Quit: No Second Hand Smoke Exposure: Yes - Caffeine Use Caffeine Use: Reports: Coffee - Recreational Drug Use Recreational Drug Use: Yes Recreational Drug Type: Reports: Marijuana/Hashish Recreational Drug Use Frequency: Daily H&P Review of Systems - Review of Systems: Review Of Systems: ROS reveals no pertinent complaints other than HPI. Exam - Exam Exam: See Below - Vital Signs Vital Signs: Last Vital Signs Temp 36.5 C 07/09/18 16:57 Pulse 101 H 07/09/18 16:57 Resp 16 07/09/18 16:57 BP 81/30 L 07/09/18 16:57 Pulse Ox 100 07/09/18 16:57 Weight: 69.4 kg - Exam General: Alert, Oriented HEENT: Conjunctiva Clear Neck: Supple, Trachea Midline Lungs: Clear to Auscultation Cardiovascular: Regular Rate, Regular Rhythm GI/Abdominal Exam: Normal Bowel Sounds, Soft Extremities: Other (bilateral BKA) - Patient Data Lab Results Last 24 hrs: Laboratory Results - last 24 hr 07/09/18 07/09/18 07/09/18 Range/Units 14:50 14:50 14:57 WBC (5.0-10.0) 10^3/uL RBC (4.6-6.2) 10^6/uL Hgb (14.0-18.0) g/dL Hct (40.0-54.0) % MCV (80-100) fL MCH (27.0-34.0) pg MCHC (33.0-35.0) g/dL Plt Count (150-450) 10^3/uL Neut % (Auto) (42.2-75.2) % Lymph % (Auto) (20.5-50.1) % Graham % (Auto) (2-8) % Eos % (Auto) (1.0-3.0) % Baso % (Auto) (0.0-1.0) % Sodium (135-145) mmol/L Potassium (3.6-5.0) mmol/L Chloride (101-111) mmol/L Carbon Dioxide (21.0-31.0) mmol/L Anion Gap BUN (7-18) mg/dL Creatinine (0.6-1.3) mg/dL Est Cr Clr Drug Dosing Estimated GFR (MDRD) BUN/Creatinine Ratio Glucose (74-105) mg/dL POC Glucose 209 H (70-105) mg/dl Lactic Acid (0.5-2.2) mmol/L Calcium (8.4-10.2) mg/dl Total Bilirubin (0.2-1.0) mg/dL AST (10-42) IU/L ALT (10-60) IU/L Alkaline Phosphatase (42-121) IU/L Total Protein (6.7-8.2) g/dl Albumin (3.2-5.5) g/dl Globulin Albumin/Globulin Ratio Amylase (28-100) U/L Lipase (22-51) U/L Urine Color Yellow (YELLOW) Urine Appearance Clear (CLEAR) Urine pH 5.5 (5.0-9.0) Ur Specific [place] >= 1.030 (1.005-1.030) Urine Protein >=300 H (NEGATIVE) Urine Glucose (UA) Negative (NEGATIVE) Urine Ketones Negative (NEGATIVE) Urine Occult Blood Moderate H (NEGATIVE) Urine Nitrite Negative (NEGATIVE) Urine Bilirubin Negative (NEGATIVE) Urine Urobilinogen 0.2 (0.2-1.0) mg/dL Ur Leukocyte Esterase Negative (NEGATIVE) Urine RBC 0-5 /HPF Urine WBC 0-5 (0-5/HPF) /HPF Ur Epithelial Cells Rare /HPF Amorphous Sediment Moderate (0/HPF) /HPF Urine Bacteria Few (0-FEW/HPF) /HPF Hyaline Casts Moderate H /LPF Urine Mucus Moderate H /LPF Urine Other See note Urine Opiates Screen Negative (NEGATIVE) Ur Oxycodone Screen Negative (NEGATIVE) Urine Methadone Screen Negative (NEGATIVE) Ur Barbiturates Screen Negative (NEGATIVE) U Tricyclic Antidepress Negative (NEGATIVE) Ur Phencyclidine Scrn Negative (NEGATIVE) Ur Amphetamine Screen Negative (NEGATIVE) U Methamphetamines Scrn Negative (NEGATIVE) Urine MDMA Screen Negative (NEGATIVE) U Benzodiazepines Scrn Negative (NEGATIVE) Urine Cocaine Screen Negative (NEGATIVE) U Marijuana (THC) Screen Positive H (NEGATIVE) Ethyl Alcohol mg/dL Ketones 07/09/18 07/09/18 07/09/18 Range/Units 15:01 15:01 15:01 WBC 10.1 H (5.0-10.0) 10^3/uL RBC 5.69 (4.6-6.2) 10^6/uL Hgb 17.2 (14.0-18.0) g/dL Hct 48.7 (40.0-54.0) % MCV 85.6 (80-100) fL MCH 30.2 (27.0-34.0) pg MCHC 35.3 H (33.0-35.0) g/dL Plt Count 206 (150-450) 10^3/uL Neut % (Auto) 81.8 H (42.2-75.2) % Lymph % (Auto) 11.4 L (20.5-50.1) % Graham % (Auto) 5.3 (2-8) % Eos % (Auto) 0.9 L (1.0-3.0) % Baso % (Auto) 0.6 (0.0-1.0) % Sodium 136 (135-145) mmol/L Potassium 4.0 (3.6-5.0) mmol/L Chloride 105 (101-111) mmol/L Carbon Dioxide 16.0 L (21.0-31.0) mmol/L Anion Gap 19.0 BUN 17 (7-18) mg/dL Creatinine 1.2 (0.6-1.3) mg/dL Est Cr Clr Drug Dosing TNP Estimated GFR (MDRD) > 60 BUN/Creatinine Ratio 14.16 Glucose 238 H (74-105) mg/dL POC Glucose (70-105) mg/dl Lactic Acid 2.1 (0.5-2.2) mmol/L Calcium 9.7 (8.4-10.2) mg/dl Total Bilirubin 1.2 H (0.2-1.0) mg/dL AST 26 (10-42) IU/L ALT 14 (10-60) IU/L Alkaline Phosphatase 105 (42-121) IU/L Total Protein 8.4 H (6.7-8.2) g/dl Albumin 4.5 (3.2-5.5) g/dl Globulin 3.9 Albumin/Globulin Ratio 1.15 Amylase 120 H (28-100) U/L Lipase 49 (22-51) U/L Urine Color (YELLOW) Urine Appearance (CLEAR) Urine pH (5.0-9.0) Ur Specific [place] (1.005-1.030) Urine Protein (NEGATIVE) Urine Glucose (UA) (NEGATIVE) Urine Ketones (NEGATIVE) Urine Occult Blood (NEGATIVE) Urine Nitrite (NEGATIVE) Urine Bilirubin (NEGATIVE) Urine Urobilinogen (0.2-1.0) mg/dL Ur Leukocyte Esterase (NEGATIVE) Urine RBC /HPF Urine WBC (0-5/HPF) /HPF Ur Epithelial Cells /HPF Amorphous Sediment (0/HPF) /HPF Urine Bacteria (0-FEW/HPF) /HPF Hyaline Casts /LPF Urine Mucus /LPF Urine Other Urine Opiates Screen (NEGATIVE) Ur Oxycodone Screen (NEGATIVE) Urine Methadone Screen (NEGATIVE) Ur Barbiturates Screen (NEGATIVE) U Tricyclic Antidepress (NEGATIVE) Ur Phencyclidine Scrn (NEGATIVE) Ur Amphetamine Screen (NEGATIVE) U Methamphetamines Scrn (NEGATIVE) Urine MDMA Screen (NEGATIVE) U Benzodiazepines Scrn (NEGATIVE) Urine Cocaine Screen (NEGATIVE) U Marijuana (THC) Screen (NEGATIVE) Ethyl Alcohol < 5 mg/dL Ketones Negative 07/09/18 Range/Units 17:10 WBC (5.0-10.0) 10^3/uL RBC (4.6-6.2) 10^6/uL Hgb (14.0-18.0) g/dL Hct (40.0-54.0) % MCV (80-100) fL MCH (27.0-34.0) pg MCHC (33.0-35.0) g/dL Plt Count (150-450) 10^3/uL Neut % (Auto) (42.2-75.2) % Lymph % (Auto) (20.5-50.1) % Graham % (Auto) (2-8) % Eos % (Auto) (1.0-3.0) % Baso % (Auto) (0.0-1.0) % Sodium (135-145) mmol/L Potassium (3.6-5.0) mmol/L Chloride (101-111) mmol/L Carbon Dioxide (21.0-31.0) mmol/L Anion Gap BUN (7-18) mg/dL Creatinine (0.6-1.3) mg/dL Est Cr Clr Drug Dosing Estimated GFR (MDRD) BUN/Creatinine Ratio Glucose (74-105) mg/dL POC Glucose 215 H (70-105) mg/dl Lactic Acid (0.5-2.2) mmol/L Calcium (8.4-10.2) mg/dl Total Bilirubin (0.2-1.0) mg/dL AST (10-42) IU/L ALT (10-60) IU/L Alkaline Phosphatase (42-121) IU/L Total Protein (6.7-8.2) g/dl Albumin (3.2-5.5) g/dl Globulin Albumin/Globulin Ratio Amylase (28-100) U/L Lipase (22-51) U/L Urine Color (YELLOW) Urine Appearance (CLEAR) Urine pH (5.0-9.0) Ur Specific [place] (1.005-1.030) Urine Protein (NEGATIVE) Urine Glucose (UA) (NEGATIVE) Urine Ketones (NEGATIVE) Urine Occult Blood (NEGATIVE) Urine Nitrite (NEGATIVE) Urine Bilirubin (NEGATIVE) Urine Urobilinogen (0.2-1.0) mg/dL Ur Leukocyte Esterase (NEGATIVE) Urine RBC /HPF Urine WBC (0-5/HPF) /HPF Ur Epithelial Cells /HPF Amorphous Sediment (0/HPF) /HPF Urine Bacteria (0-FEW/HPF) /HPF Hyaline Casts /LPF Urine Mucus /LPF Urine Other Urine Opiates Screen (NEGATIVE) Ur Oxycodone Screen (NEGATIVE) Urine Methadone Screen (NEGATIVE) Ur Barbiturates Screen (NEGATIVE) U Tricyclic Antidepress (NEGATIVE) Ur Phencyclidine Scrn (NEGATIVE) Ur Amphetamine Screen (NEGATIVE) U Methamphetamines Scrn (NEGATIVE) Urine MDMA Screen (NEGATIVE) U Benzodiazepines Scrn (NEGATIVE) Urine Cocaine Screen (NEGATIVE) U Marijuana (THC) Screen (NEGATIVE) Ethyl Alcohol mg/dL Ketones Result Diagrams: 07/09/18 15:01 07/09/18 15:01 Problem List Initiated/Reviewed/Updated: Yes Orders Last 24hrs: Active Orders 24 hr Category Date Time Status Patient Status [ADT] Routine ADT 07/09/18 16:57 Active Accu Check [Blood Glucose Check, Bedside] [RC] Q2H Care 07/09/18 16:57 Active Ambulate [RC] ASDIRECTED Care 07/09/18 16:57 Active Blood Glucose Check, Bedside [RC] ONETIME Care 07/09/18 14:50 Active Height and Weight [RC] DAILY Care 07/09/18 16:57 Active Oxygen Therapy [RC] PRN Care 07/09/18 16:57 Active Peripheral IV Care [RC] . DIRECTED Care 07/09/18 14:51 Active Peripheral IV Care [RC] . DIRECTED Care 07/09/18 16:58 Active Up With Assistance [RC] ASDIRECTED Care 07/09/18 16:57 Active VTE/DVT Education [RC] PER UNIT ROUTINE Care 07/09/18 16:57 Active Vital Signs [RC] Q4H Care 07/09/18 16:57 Active Consistent Carbohydrate Diet [DIET] Diet 07/09/18 Dinner Active ABG [BLOOD GAS ARTERIAL] [BG] Stat Lab 07/09/18 15:45 Ordered CULTURE BLOOD [BC] Stat Lab 07/09/18 15:01 Received CULTURE BLOOD [BC] Stat Lab 07/09/18 15:07 Received Heparin Sodium Med 07/09/18 17:00 Active 5,000 units SUBCUT Q8H Insulin Lispro [HumaLOG] Med 07/09/18 18:00 Active See Protocol SUBCUT Q2HR Metoclopramide [Reglan] Med 07/09/18 17:15 Active 5 mg IVPUSH Q6H Ondansetron [Zofran] Med 07/09/18 17:03 Active 4 mg IV Q4H PRN Sodium Chloride 0.9% [Normal Saline] 1,000 ml Med 07/09/18 17:00 Active IV ASDIRECTED Sodium Chloride 0.9% [Saline Flush] Med 07/09/18 14:50 Active 10 ml FLUSH ASDIRECTED PRN Sodium Chloride 0.9% [Saline Flush] Med 07/09/18 16:57 Active 10 ml FLUSH ASDIRECTED PRN Blood Culture x2 Reflex Set [OM.PC] Stat Oth 07/09/18 14:50 Ordered Peripheral IV Insertion Adult [OM.PC] Routine Oth 07/09/18 16:57 Ordered Peripheral IV Insertion Adult [OM.PC] Stat Oth 07/09/18 14:50 Ordered Saline Lock Insert [OM.PC] Routine Oth 07/09/18 16:57 Ordered Resuscitation Status Routine Resus Stat 07/09/18 16:57 Ordered Medication Orders Heparin Sodium (Porcine) (Heparin Sodium) 5,000 units SUBCUT Q8H BRENT Sodium Chloride (Normal Saline) 1,000 mls @ 150 mls/hr IV ASDIRECTED BRENT Insulin Human Lispro (Humalog) 0 unit SUBCUT Q2HR BRENT; Protocol Metoclopramide HCl (Reglan) 5 mg IVPUSH Q6H BRENT Stop: 07/10/18 11:16 Ondansetron HCl (Zofran) 4 mg IV Q4H PRN PRN Reason: Nausea/Vomiting Sodium Chloride (Saline Flush) 10 ml FLUSH ASDIRECTED PRN PRN Reason: Keep Vein Open Last Admin: 07/09/18 15:07 Dose: 10 ml Sodium Chloride (Saline Flush) 10 ml FLUSH ASDIRECTED PRN PRN Reason: Keep Vein Open Assessment/Plan Comment:: #Nausea/Vomiting Likely gastroenteritis vs gastroparesis supportive mgt IVF hydration PRN zofran BRENT reglan #Hx of DM #Hyperglycemia Accuchecks Q2 when awake with sliding scale insulin carb controlled diet #Hx of seizure disorder continue home dose of Keppra #DVT ppx SC heparin
[2018-07-09] MEDS: Heparin Sodium 5,000 Units/ML Vial SUBCUT SCH ×2 (17:43→18:01)
[2018-07-09] MEDS: Insulin Lispro 100 Units/ML 3 ML Vial SUBCUT SCH ×4 (17:48→23:00)
[2018-07-09] MEDS: Metoclopramide 10 MG/2 ML SDV IVPUSH SCH ×2 (18:00→23:08)
[2018-07-09] MEDS: Sodium Chloride 0.9% 1,000 ML IV SCH (18:28)
[2018-07-09] MEDS: levETIRAcetam 500 MG Tab PO SCH (18:31)
[2018-07-09] MEDS ORDERED: traZODone 50 MG Tab PO SCH (21:00)
[2018-07-09] MEDS ORDERED: Insulin Glarg,Human.Rec.Analog 100 UNIT/ML ML SUBCUT SCH (21:00)
[2018-07-10] MEDS: Sodium Chloride 0.9% 1,000 ML IV SCH ×2 (00:55→07:37)
[2018-07-10] MEDS: Heparin Sodium 5,000 Units/ML Vial SUBCUT SCH ×2 (00:57→08:28)
[2018-07-10] MEDS: Insulin Lispro 100 Units/ML 3 ML Vial SUBCUT SCH ×6 (01:13→12:44)
[2018-07-10] MEDS: Metoclopramide 10 MG/2 ML SDV IVPUSH SCH (05:14)
[2018-07-10 07:32] LABS: ALLEN TEST POSITIVE
[2018-07-10] MEDS: levETIRAcetam 500 MG Tab PO SCH (07:58)
[2018-07-10] MEDS: Sodium Chloride 0.9% 10 ML Syringe FLUSH PRN (07:59)
[2018-07-10] MEDS ORDERED: PIOGLITAZONE HCL PO SCH (09:00)
[2018-07-10 09:04] VITALS: BP 154/82
[2018-07-10] MEDS ORDERED: predniSONE 5 MG Tab PO SCH (11:00)
[2018-07-10] MEDS ORDERED: Metoclopramide 10 MG Tab PO SCH (11:00)
--- NOTE | 2018-07-10 11:06 | PCM.PN ---
- General Info Date of Service: 07/10/18 Admission Dx/Problem (Free Text): Admission Diagnosis/Problem Admission Diagnosis/Problem Dehydration, Nausea and vomiting Subjective Update: patient said that his nausea is better. He reports some abdominal wall pain related to movement. Patient said that he smokes marijuana at home to help with his poor appetite. I discussed with patient the possibility of marijuana causing nausea and vomiting. - Review of Systems General: Reports: No Symptoms Pulmonary: Reports: No Symptoms Cardiovascular: Reports: No Symptoms Gastrointestinal: Reports: Abdominal Pain (abdominal wall), Nausea Genitourinary: Reports: No Symptoms - Patient Data Vitals - Most Recent: Last Vital Signs Temp 36.3 C 07/10/18 09:00 Pulse 93 07/10/18 09:00 Resp 20 07/10/18 09:00 BP 154/82 H 07/10/18 09:00 Pulse Ox 99 07/10/18 09:00 Weight - Most Recent: 69.4 kg I&O - Last 24 Hours: Intake & Output 07/09/18 07/10/18 07/10/18 22:59 06:59 14:59 Intake Total 1209 1607 0 Output Total 200 650 325 Balance 1009 957 -325 Lab Results Last 24 Hours: Laboratory Results - last 24 hr 07/09/18 07/09/18 07/09/18 Range/Units 14:50 14:50 14:57 WBC (5.0-10.0) 10^3/uL RBC (4.6-6.2) 10^6/uL Hgb (14.0-18.0) g/dL Hct (40.0-54.0) % MCV (80-100) fL MCH (27.0-34.0) pg MCHC (33.0-35.0) g/dL Plt Count (150-450) 10^3/uL Neut % (Auto) (42.2-75.2) % Lymph % (Auto) (20.5-50.1) % Marion % (Auto) (2-8) % Eos % (Auto) (1.0-3.0) % Baso % (Auto) (0.0-1.0) % ABG pH (7.35-7.45) ABG pCO2 (35-45) mmHg ABG pO2 (70-100) mmHg ABG HCO3 (22-26) mmol/L ABG O2 Saturation (95-100) % ABG Base Excess ((-2)-(+3)) mmol/L Gabriel Test O2 Delivery Device Sodium (135-145) mmol/L Potassium (3.6-5.0) mmol/L Chloride (101-111) mmol/L Carbon Dioxide (21.0-31.0) mmol/L Anion Gap BUN (7-18) mg/dL Creatinine (0.6-1.3) mg/dL Est Cr Clr Drug Dosing Estimated GFR (MDRD) BUN/Creatinine Ratio Glucose (74-105) mg/dL POC Glucose 209 H (70-105) mg/dl Lactic Acid (0.5-2.2) mmol/L Calcium (8.4-10.2) mg/dl Total Bilirubin (0.2-1.0) mg/dL AST (10-42) IU/L ALT (10-60) IU/L Alkaline Phosphatase (42-121) IU/L Total Protein (6.7-8.2) g/dl Albumin (3.2-5.5) g/dl Globulin Albumin/Globulin Ratio Amylase (28-100) U/L Lipase (22-51) U/L Urine Color Yellow (YELLOW) Urine Appearance Clear (CLEAR) Urine pH 5.5 (5.0-9.0) Ur Specific [place] >= 1.030 (1.005-1.030) Urine Protein >=300 H (NEGATIVE) Urine Glucose (UA) Negative (NEGATIVE) Urine Ketones Negative (NEGATIVE) Urine Occult Blood Moderate H (NEGATIVE) Urine Nitrite Negative (NEGATIVE) Urine Bilirubin Negative (NEGATIVE) Urine Urobilinogen 0.2 (0.2-1.0) mg/dL Ur Leukocyte Esterase Negative (NEGATIVE) Urine RBC 0-5 /HPF Urine WBC 0-5 (0-5/HPF) /HPF Ur Epithelial Cells Rare /HPF Amorphous Sediment Moderate (0/HPF) /HPF Urine Bacteria Few (0-FEW/HPF) /HPF Hyaline Casts Moderate H /LPF Urine Mucus Moderate H /LPF Urine Other See note Urine Opiates Screen Negative (NEGATIVE) Ur Oxycodone Screen Negative (NEGATIVE) Urine Methadone Screen Negative (NEGATIVE) Ur Barbiturates Screen Negative (NEGATIVE) U Tricyclic Antidepress Negative (NEGATIVE) Ur Phencyclidine Scrn Negative (NEGATIVE) Ur Amphetamine Screen Negative (NEGATIVE) U Methamphetamines Scrn Negative (NEGATIVE) Urine MDMA Screen Negative (NEGATIVE) U Benzodiazepines Scrn Negative (NEGATIVE) Urine Cocaine Screen Negative (NEGATIVE) U Marijuana (THC) Screen Positive H (NEGATIVE) Ethyl Alcohol mg/dL Ketones 07/09/18 07/09/18 07/09/18 Range/Units 15:01 15:01 15:01 WBC 10.1 H (5.0-10.0) 10^3/uL RBC 5.69 (4.6-6.2) 10^6/uL Hgb 17.2 (14.0-18.0) g/dL Hct 48.7 (40.0-54.0) % MCV 85.6 (80-100) fL MCH 30.2 (27.0-34.0) pg MCHC 35.3 H (33.0-35.0) g/dL Plt Count 206 (150-450) 10^3/uL Neut % (Auto) 81.8 H (42.2-75.2) % Lymph % (Auto) 11.4 L (20.5-50.1) % Marion % (Auto) 5.3 (2-8) % Eos % (Auto) 0.9 L (1.0-3.0) % Baso % (Auto) 0.6 (0.0-1.0) % ABG pH (7.35-7.45) ABG pCO2 (35-45) mmHg ABG pO2 (70-100) mmHg ABG HCO3 (22-26) mmol/L ABG O2 Saturation (95-100) % ABG Base Excess ((-2)-(+3)) mmol/L Gabriel Test O2 Delivery Device Sodium 136 (135-145) mmol/L Potassium 4.0 (3.6-5.0) mmol/L Chloride 105 (101-111) mmol/L Carbon Dioxide 16.0 L (21.0-31.0) mmol/L Anion Gap 19.0 BUN 17 (7-18) mg/dL Creatinine 1.2 (0.6-1.3) mg/dL Est Cr Clr Drug Dosing TNP Estimated GFR (MDRD) > 60 BUN/Creatinine Ratio 14.16 Glucose 238 H (74-105) mg/dL POC Glucose (70-105) mg/dl Lactic Acid 2.1 (0.5-2.2) mmol/L Calcium 9.7 (8.4-10.2) mg/dl Total Bilirubin 1.2 H (0.2-1.0) mg/dL AST 26 (10-42) IU/L ALT 14 (10-60) IU/L Alkaline Phosphatase 105 (42-121) IU/L Total Protein 8.4 H (6.7-8.2) g/dl Albumin 4.5 (3.2-5.5) g/dl Globulin 3.9 Albumin/Globulin Ratio 1.15 Amylase 120 H (28-100) U/L Lipase 49 (22-51) U/L Urine Color (YELLOW) Urine Appearance (CLEAR) Urine pH (5.0-9.0) Ur Specific [place] (1.005-1.030) Urine Protein (NEGATIVE) Urine Glucose (UA) (NEGATIVE) Urine Ketones (NEGATIVE) Urine Occult Blood (NEGATIVE) Urine Nitrite (NEGATIVE) Urine Bilirubin (NEGATIVE) Urine Urobilinogen (0.2-1.0) mg/dL Ur Leukocyte Esterase (NEGATIVE) Urine RBC /HPF Urine WBC (0-5/HPF) /HPF Ur Epithelial Cells /HPF Amorphous Sediment (0/HPF) /HPF Urine Bacteria (0-FEW/HPF) /HPF Hyaline Casts /LPF Urine Mucus /LPF Urine Other Urine Opiates Screen (NEGATIVE) Ur Oxycodone Screen (NEGATIVE) Urine Methadone Screen (NEGATIVE) Ur Barbiturates Screen (NEGATIVE) U Tricyclic Antidepress (NEGATIVE) Ur Phencyclidine Scrn (NEGATIVE) Ur Amphetamine Screen (NEGATIVE) U Methamphetamines Scrn (NEGATIVE) Urine MDMA Screen (NEGATIVE) U Benzodiazepines Scrn (NEGATIVE) Urine Cocaine Screen (NEGATIVE) U Marijuana (THC) Screen (NEGATIVE) Ethyl Alcohol < 5 mg/dL Ketones Negative 07/09/18 07/09/18 07/09/18 Range/Units 15:45 17:10 19:03 WBC (5.0-10.0) 10^3/uL RBC (4.6-6.2) 10^6/uL Hgb (14.0-18.0) g/dL Hct (40.0-54.0) % MCV (80-100) fL MCH (27.0-34.0) pg MCHC (33.0-35.0) g/dL Plt Count (150-450) 10^3/uL Neut % (Auto) (42.2-75.2) % Lymph % (Auto) (20.5-50.1) % [place] % (Auto) (2-8) % Eos % (Auto) (1.0-3.0) % Baso % (Auto) (0.0-1.0) % ABG pH 7.31 L (7.35-7.45) ABG pCO2 40 (35-45) mmHg ABG pO2 84 (70-100) mmHg ABG HCO3 19.5 L (22-26) mmol/L ABG O2 Saturation 96 (95-100) % ABG Base Excess -6 L ((-2)-(+3)) mmol/L Gabriel Test Positive O2 Delivery Device Room air Sodium (135-145) mmol/L Potassium (3.6-5.0) mmol/L Chloride (101-111) mmol/L Carbon Dioxide (21.0-31.0) mmol/L Anion Gap BUN (7-18) mg/dL Creatinine (0.6-1.3) mg/dL Est Cr Clr Drug Dosing Estimated GFR (MDRD) BUN/Creatinine Ratio Glucose (74-105) mg/dL POC Glucose 215 H 287 H (70-105) mg/dl Lactic Acid (0.5-2.2) mmol/L Calcium (8.4-10.2) mg/dl Total Bilirubin (0.2-1.0) mg/dL AST (10-42) IU/L ALT (10-60) IU/L Alkaline Phosphatase (42-121) IU/L Total Protein (6.7-8.2) g/dl Albumin (3.2-5.5) g/dl Globulin Albumin/Globulin Ratio Amylase (28-100) U/L Lipase (22-51) U/L Urine Color (YELLOW) Urine Appearance (CLEAR) Urine pH (5.0-9.0) Ur Specific [place] (1.005-1.030) Urine Protein (NEGATIVE) Urine Glucose (UA) (NEGATIVE) Urine Ketones (NEGATIVE) Urine Occult Blood (NEGATIVE) Urine Nitrite (NEGATIVE) Urine Bilirubin (NEGATIVE) Urine Urobilinogen (0.2-1.0) mg/dL Ur Leukocyte Esterase (NEGATIVE) Urine RBC /HPF Urine WBC (0-5/HPF) /HPF Ur Epithelial Cells /HPF Amorphous Sediment (0/HPF) /HPF Urine Bacteria (0-FEW/HPF) /HPF Hyaline Casts /LPF Urine Mucus /LPF Urine Other Urine Opiates Screen (NEGATIVE) Ur Oxycodone Screen (NEGATIVE) Urine Methadone Screen (NEGATIVE) Ur Barbiturates Screen (NEGATIVE) U Tricyclic Antidepress (NEGATIVE) Ur Phencyclidine Scrn (NEGATIVE) Ur Amphetamine Screen (NEGATIVE) U Methamphetamines Scrn (NEGATIVE) Urine MDMA Screen (NEGATIVE) U Benzodiazepines Scrn (NEGATIVE) Urine Cocaine Screen (NEGATIVE) U Marijuana (THC) Screen (NEGATIVE) Ethyl Alcohol mg/dL Ketones 07/09/18 07/09/18 07/10/18 Range/Units 21:08 23:07 01:01 WBC (5.0-10.0) 10^3/uL RBC (4.6-6.2) 10^6/uL Hgb (14.0-18.0) g/dL Hct (40.0-54.0) % MCV (80-100) fL MCH (27.0-34.0) pg MCHC (33.0-35.0) g/dL Plt Count (150-450) 10^3/uL Neut % (Auto) (42.2-75.2) % Lymph % (Auto) (20.5-50.1) % [place] % (Auto) (2-8) % Eos % (Auto) (1.0-3.0) % Baso % (Auto) (0.0-1.0) % ABG pH (7.35-7.45) ABG pCO2 (35-45) mmHg ABG pO2 (70-100) mmHg ABG HCO3 (22-26) mmol/L ABG O2 Saturation (95-100) % ABG Base Excess ((-2)-(+3)) mmol/L Gabriel Test O2 Delivery Device Sodium (135-145) mmol/L Potassium (3.6-5.0) mmol/L Chloride (101-111) mmol/L Carbon Dioxide (21.0-31.0) mmol/L Anion Gap BUN (7-18) mg/dL Creatinine (0.6-1.3) mg/dL Est Cr Clr Drug Dosing Estimated GFR (MDRD) BUN/Creatinine Ratio Glucose (74-105) mg/dL POC Glucose 223 H 193 H 141 H (70-105) mg/dl Lactic Acid (0.5-2.2) mmol/L Calcium (8.4-10.2) mg/dl Total Bilirubin (0.2-1.0) mg/dL AST (10-42) IU/L ALT (10-60) IU/L Alkaline Phosphatase (42-121) IU/L Total Protein (6.7-8.2) g/dl Albumin (3.2-5.5) g/dl Globulin Albumin/Globulin Ratio Amylase (28-100) U/L Lipase (22-51) U/L Urine Color (YELLOW) Urine Appearance (CLEAR) Urine pH (5.0-9.0) Ur Specific [place] (1.005-1.030) Urine Protein (NEGATIVE) Urine Glucose (UA) (NEGATIVE) Urine Ketones (NEGATIVE) Urine Occult Blood (NEGATIVE) Urine Nitrite (NEGATIVE) Urine Bilirubin (NEGATIVE) Urine Urobilinogen (0.2-1.0) mg/dL Ur Leukocyte Esterase (NEGATIVE) Urine RBC /HPF Urine WBC (0-5/HPF) /HPF Ur Epithelial Cells /HPF Amorphous Sediment (0/HPF) /HPF Urine Bacteria (0-FEW/HPF) /HPF Hyaline Casts /LPF Urine Mucus /LPF Urine Other Urine Opiates Screen (NEGATIVE) Ur Oxycodone Screen (NEGATIVE) Urine Methadone Screen (NEGATIVE) Ur Barbiturates Screen (NEGATIVE) U Tricyclic Antidepress (NEGATIVE) Ur Phencyclidine Scrn (NEGATIVE) Ur Amphetamine Screen (NEGATIVE) U Methamphetamines Scrn (NEGATIVE) Urine MDMA Screen (NEGATIVE) U Benzodiazepines Scrn (NEGATIVE) Urine Cocaine Screen (NEGATIVE) U Marijuana (THC) Screen (NEGATIVE) Ethyl Alcohol mg/dL Ketones 07/10/18 07/10/18 Range/Units 05:10 07:44 WBC (5.0-10.0) 10^3/uL RBC (4.6-6.2) 10^6/uL Hgb (14.0-18.0) g/dL Hct (40.0-54.0) % MCV (80-100) fL MCH (27.0-34.0) pg MCHC (33.0-35.0) g/dL Plt Count (150-450) 10^3/uL Neut % (Auto) (42.2-75.2) % Lymph % (Auto) (20.5-50.1) % [place] % (Auto) (2-8) % Eos % (Auto) (1.0-3.0) % Baso % (Auto) (0.0-1.0) % ABG pH (7.35-7.45) ABG pCO2 (35-45) mmHg ABG pO2 (70-100) mmHg ABG HCO3 (22-26) mmol/L ABG O2 Saturation (95-100) % ABG Base Excess ((-2)-(+3)) mmol/L Gabriel Test O2 Delivery Device Sodium (135-145) mmol/L Potassium (3.6-5.0) mmol/L Chloride (101-111) mmol/L Carbon Dioxide (21.0-31.0) mmol/L Anion Gap BUN (7-18) mg/dL Creatinine (0.6-1.3) mg/dL Est Cr Clr Drug Dosing Estimated GFR (MDRD) BUN/Creatinine Ratio Glucose (74-105) mg/dL POC Glucose 128 H 167 H (70-105) mg/dl Lactic Acid (0.5-2.2) mmol/L Calcium (8.4-10.2) mg/dl Total Bilirubin (0.2-1.0) mg/dL AST (10-42) IU/L ALT (10-60) IU/L Alkaline Phosphatase (42-121) IU/L Total Protein (6.7-8.2) g/dl Albumin (3.2-5.5) g/dl Globulin Albumin/Globulin Ratio Amylase (28-100) U/L Lipase (22-51) U/L Urine Color (YELLOW) Urine Appearance (CLEAR) Urine pH (5.0-9.0) Ur Specific [place] (1.005-1.030) Urine Protein (NEGATIVE) Urine Glucose (UA) (NEGATIVE) Urine Ketones (NEGATIVE) Urine Occult Blood (NEGATIVE) Urine Nitrite (NEGATIVE) Urine Bilirubin (NEGATIVE) Urine Urobilinogen (0.2-1.0) mg/dL Ur Leukocyte Esterase (NEGATIVE) Urine RBC /HPF Urine WBC (0-5/HPF) /HPF Ur Epithelial Cells /HPF Amorphous Sediment (0/HPF) /HPF Urine Bacteria (0-FEW/HPF) /HPF Hyaline Casts /LPF Urine Mucus /LPF Urine Other Urine Opiates Screen (NEGATIVE) Ur Oxycodone Screen (NEGATIVE) Urine Methadone Screen (NEGATIVE) Ur Barbiturates Screen (NEGATIVE) U Tricyclic Antidepress (NEGATIVE) Ur Phencyclidine Scrn (NEGATIVE) Ur Amphetamine Screen (NEGATIVE) U Methamphetamines Scrn (NEGATIVE) Urine MDMA Screen (NEGATIVE) U Benzodiazepines Scrn (NEGATIVE) Urine Cocaine Screen (NEGATIVE) U Marijuana (THC) Screen (NEGATIVE) Ethyl Alcohol mg/dL Ketones Med Orders - Current: Current Medications Heparin Sodium (Porcine) (Heparin Sodium) 5,000 units SUBCUT Q8H [facility] Last Admin: 07/10/18 08:28 Dose: 5,000 units Sodium Chloride (Normal Saline) 1,000 mls @ 150 mls/hr IV ASDIRECTED [facility] Last Admin: 07/10/18 07:37 Dose: 150 mls/hr Insulin Glargine (Lantus) 6 unit SUBCUT BEDTIME [facility] Last Admin: 07/09/18 21:22 Dose: 6 units Insulin Human Lispro (Humalog) 0 unit SUBCUT Q2HR [facility]; Protocol Last Admin: 07/10/18 08:09 Dose: Not Given Levetiracetam (Keppra) 500 mg PO BIDMEALS [facility] Last Admin: 07/10/18 07:58 Dose: 500 mg Ondansetron HCl (Zofran) 4 mg IV Q4H PRN PRN Reason: Nausea/Vomiting Last Admin: 07/10/18 07:59 Dose: 4 mg Prednisone (Prednisone) 40 mg PO WITHBREAKFAST [facility] Stop: 07/15/18 11:01 Sodium Chloride (Saline Flush) 10 ml FLUSH ASDIRECTED PRN PRN Reason: Keep Vein Open Trazodone HCl (Trazodone) 50 mg PO BEDTIME [facility] Last Admin: 07/09/18 21:22 Dose: 50 mg Discontinued Medications Diphenhydramine HCl (Benadryl) 25 mg IVPUSH ONETIME ONE Stop: 07/09/18 15:13 Last Admin: 07/09/18 15:18 Dose: 25 mg Hydromorphone HCl (Dilaudid) 1 mg IVPUSH ONETIME ONE Stop: 07/09/18 15:13 Last Admin: 07/09/18 15:17 Dose: 1 mg Sodium Chloride (Normal Saline) 1,000 mls @ 999 mls/hr IV .BOLUS ONE Stop: 07/09/18 15:51 Last Admin: 07/09/18 15:06 Dose: 999 mls/hr Sodium Chloride (Normal Saline) 1,000 mls @ 999 mls/hr IV .BOLUS ONE Stop: 07/09/18 16:12 Last Admin: 07/09/18 16:29 Dose: 999 mls/hr Sodium Chloride (Normal Saline) 1,000 mls @ 999 mls/min IV .BOLUS ONE Stop: 07/09/18 16:58 Last Admin: 07/09/18 17:27 Dose: 999 mls/min Metoclopramide HCl (Reglan) 10 mg IVPUSH ONETIME ONE Stop: 07/09/18 15:12 Last Admin: 07/09/18 15:18 Dose: 10 mg Metoclopramide HCl (Reglan) 5 mg IVPUSH Q6H [facility] Stop: 07/10/18 11:16 Last Admin: 07/10/18 05:14 Dose: 5 mg Ondansetron HCl (Zofran) 4 mg IV ONETIME ONE Stop: 07/09/18 14:52 Last Admin: 07/09/18 15:07 Dose: 4 mg Sodium Chloride (Saline Flush) 10 ml FLUSH ASDIRECTED PRN PRN Reason: Keep Vein Open Last Admin: 07/10/18 07:59 Dose: 10 ml - Exam General: Alert, Oriented Lungs: Clear to Auscultation, Normal Respiratory Effort Cardiovascular: Regular Rate, Regular Rhythm GI/Abdominal Exam: Normal Bowel Sounds, Soft, Non-Tender, No Distention Extremities: Other (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, below knee amputation right) Skin: Warm, Dry Neurological: No New Focal Deficit Psy/Mental Status: Alert, Normal Affect, Suicidal Ideation - Problem List Review Problem List Initiated/Reviewed/Updated: Yes - My Orders Last 24 Hours: My Active Orders 07/10/18 10:59 Blood Glucose Check, Bedside [RC] QIDACANDBED 07/10/18 11:00 predniSONE 40 mg PO WITHBREAKFAST 07/10/18 17:00 Metoclopramide [Reglan] 10 mg PO TIDAC - Plan Plan:: #Nausea/Vomiting most likely gastroparesis improved discontinue IV hydration PRN zofran switch Reglan to oral #Hx of DM likely type 1 #Hyperglycemia change Accu-Cheks to before meals at bedtime Home insulin #Hx of seizure disorder continue home dose of Keppra #DVT ppx SC heparin
--- NOTE | 2018-07-10 11:49 | PCM.DCSUM1 ---
Discharge Summary - Hospital Course Free Text/Narrative:: 43 yo M with PMH of DM, gastroparesis, HTN, BKA, recurrent UTI, seizure disorder who p/w nausea/vomiting and hyperglycemia. Patient developed nausea and vomiting the evening prior to admission that progressively gotten worse leading to his admission. Symptoms were relieved by antiemetics administered in the ED . Patient was treated with IV hydration. He was offered a trial of metoclopramide see if it helps with nausea as is concern for gastroparesis. He did not want to stay in the hospital. he was given a prescription for metoclopramide to try at home.his discharge in stable condition. - Discharge Data Discharge Date: 07/10/18 Discharge Disposition: Home, Self-Care 01 Condition: Good - Discharge Plan *PRESCRIPTION DRUG MONITORING PROGRAM REVIEWED*: No *COPY OF PRESCRIPTION DRUG MONITORING REPORT IN PATIENT NORRIS: No Prescriptions/Med Rec: Metoclopramide [Reglan] 5 mg PO TIDAC 30 Days #90 tab Home Medications: Home Meds Insulin Detemir [Levemir] 6 units SQ BEDTIME 04/29/14 [History] levETIRAcetam [Keppra] 500 mg PO BIDMEALS 04/29/14 [History] Loperamide [Imodium] 6 mg PO DAILY 02/13/15 [History] Pioglitazone HCl 7.5 mg PO DAILY 07/09/18 [History] traZODone HCl [Trazodone HCl] 50 mg PO BEDTIME 07/09/18 [History] Metoclopramide [Reglan] 5 mg PO TIDAC 30 Days #90 tab 07/10/18 [Rx] Patient Handouts: Metoclopramide tablets, Gastroparesis Referrals: PCP,None [Primary Care Provider] - - Discharge Summary/Plan Comment DC Time >30 min.: Yes - General Info Date of Service: 07/10/18 Admission Dx/Problem (Free Text: Admission Diagnosis/Problem Admission Diagnosis/Problem Dehydration, Nausea and vomiting Subjective Update: patient said that his nausea is better. He reports some abdominal wall pain related to movement. Patient said that he smokes marijuana at home to help with his poor appetite. I discussed with patient the possibility of marijuana causing nausea and vomiting. - Review of Systems General: Reports: No Symptoms HEENT: Reports: No Symptoms Pulmonary: Reports: No Symptoms Cardiovascular: Reports: No Symptoms Gastrointestinal: Reports: Other (abdominal wall pain) Genitourinary: Reports: No Symptoms Musculoskeletal: Reports: No Symptoms Skin: Reports: No Symptoms Neurological: Reports: No Symptoms Psychiatric: Reports: No Symptoms - Patient Data Vitals - Most Recent: Last Vital Signs Temp 36.3 C 07/10/18 09:00 Pulse 93 07/10/18 09:00 Resp 20 07/10/18 09:00 BP 154/82 H 07/10/18 09:00 Pulse Ox 99 07/10/18 09:00 Weight - Most Recent: 69.4 kg I&O - Last 24 hours: Intake & Output 07/09/18 07/10/18 07/10/18 22:59 06:59 14:59 Intake Total 1209 1607 0 Output Total 200 650 525 Balance 1009 957 -525 Lab Results - Last 24 hrs: Laboratory Results - last 24 hr 07/09/18 07/09/18 07/09/18 Range/Units 14:50 14:50 14:57 WBC (5.0-10.0) 10^3/uL RBC (4.6-6.2) 10^6/uL Hgb (14.0-18.0) g/dL Hct (40.0-54.0) % MCV (80-100) fL MCH (27.0-34.0) pg MCHC (33.0-35.0) g/dL Plt Count (150-450) 10^3/uL Neut % (Auto) (42.2-75.2) % Lymph % (Auto) (20.5-50.1) % [place] % (Auto) (2-8) % Eos % (Auto) (1.0-3.0) % Baso % (Auto) (0.0-1.0) % ABG pH (7.35-7.45) ABG pCO2 (35-45) mmHg ABG pO2 (70-100) mmHg ABG HCO3 (22-26) mmol/L ABG O2 Saturation (95-100) % ABG Base Excess ((-2)-(+3)) mmol/L Gabriel Test O2 Delivery Device Sodium (135-145) mmol/L Potassium (3.6-5.0) mmol/L Chloride (101-111) mmol/L Carbon Dioxide (21.0-31.0) mmol/L Anion Gap BUN (7-18) mg/dL Creatinine (0.6-1.3) mg/dL Est Cr Clr Drug Dosing Estimated GFR (MDRD) BUN/Creatinine Ratio Glucose (74-105) mg/dL POC Glucose 209 H (70-105) mg/dl Lactic Acid (0.5-2.2) mmol/L Calcium (8.4-10.2) mg/dl Total Bilirubin (0.2-1.0) mg/dL AST (10-42) IU/L ALT (10-60) IU/L Alkaline Phosphatase (42-121) IU/L Total Protein (6.7-8.2) g/dl Albumin (3.2-5.5) g/dl Globulin Albumin/Globulin Ratio Amylase (28-100) U/L Lipase (22-51) U/L Urine Color Yellow (YELLOW) Urine Appearance Clear (CLEAR) Urine pH 5.5 (5.0-9.0) Ur Specific [place] >= 1.030 (1.005-1.030) Urine Protein >=300 H (NEGATIVE) Urine Glucose (UA) Negative (NEGATIVE) Urine Ketones Negative (NEGATIVE) Urine Occult Blood Moderate H (NEGATIVE) Urine Nitrite Negative (NEGATIVE) Urine Bilirubin Negative (NEGATIVE) Urine Urobilinogen 0.2 (0.2-1.0) mg/dL Ur Leukocyte Esterase Negative (NEGATIVE) Urine RBC 0-5 /HPF Urine WBC 0-5 (0-5/HPF) /HPF Ur Epithelial Cells Rare /HPF Amorphous Sediment Moderate (0/HPF) /HPF Urine Bacteria Few (0-FEW/HPF) /HPF Hyaline Casts Moderate H /LPF Urine Mucus Moderate H /LPF Urine Other See note Urine Opiates Screen Negative (NEGATIVE) Ur Oxycodone Screen Negative (NEGATIVE) Urine Methadone Screen Negative (NEGATIVE) Ur Barbiturates Screen Negative (NEGATIVE) U Tricyclic Antidepress Negative (NEGATIVE) Ur Phencyclidine Scrn Negative (NEGATIVE) Ur Amphetamine Screen Negative (NEGATIVE) U Methamphetamines Scrn Negative (NEGATIVE) Urine MDMA Screen Negative (NEGATIVE) U Benzodiazepines Scrn Negative (NEGATIVE) Urine Cocaine Screen Negative (NEGATIVE) U Marijuana (THC) Screen Positive H (NEGATIVE) Ethyl Alcohol mg/dL Ketones 07/09/18 07/09/18 07/09/18 Range/Units 15:01 15:01 15:01 WBC 10.1 H (5.0-10.0) 10^3/uL RBC 5.69 (4.6-6.2) 10^6/uL Hgb 17.2 (14.0-18.0) g/dL Hct 48.7 (40.0-54.0) % MCV 85.6 (80-100) fL MCH 30.2 (27.0-34.0) pg MCHC 35.3 H (33.0-35.0) g/dL Plt Count 206 (150-450) 10^3/uL Neut % (Auto) 81.8 H (42.2-75.2) % Lymph % (Auto) 11.4 L (20.5-50.1) % [place] % (Auto) 5.3 (2-8) % Eos % (Auto) 0.9 L (1.0-3.0) % Baso % (Auto) 0.6 (0.0-1.0) % ABG pH (7.35-7.45) ABG pCO2 (35-45) mmHg ABG pO2 (70-100) mmHg ABG HCO3 (22-26) mmol/L ABG O2 Saturation (95-100) % ABG Base Excess ((-2)-(+3)) mmol/L Gabriel Test O2 Delivery Device Sodium 136 (135-145) mmol/L Potassium 4.0 (3.6-5.0) mmol/L Chloride 105 (101-111) mmol/L Carbon Dioxide 16.0 L (21.0-31.0) mmol/L Anion Gap 19.0 BUN 17 (7-18) mg/dL Creatinine 1.2 (0.6-1.3) mg/dL Est Cr Clr Drug Dosing TNP Estimated GFR (MDRD) > 60 BUN/Creatinine Ratio 14.16 Glucose 238 H (74-105) mg/dL POC Glucose (70-105) mg/dl Lactic Acid 2.1 (0.5-2.2) mmol/L Calcium 9.7 (8.4-10.2) mg/dl Total Bilirubin 1.2 H (0.2-1.0) mg/dL AST 26 (10-42) IU/L ALT 14 (10-60) IU/L Alkaline Phosphatase 105 (42-121) IU/L Total Protein 8.4 H (6.7-8.2) g/dl Albumin 4.5 (3.2-5.5) g/dl Globulin 3.9 Albumin/Globulin Ratio 1.15 Amylase 120 H (28-100) U/L Lipase 49 (22-51) U/L Urine Color (YELLOW) Urine Appearance (CLEAR) Urine pH (5.0-9.0) Ur Specific [place] (1.005-1.030) Urine Protein (NEGATIVE) Urine Glucose (UA) (NEGATIVE) Urine Ketones (NEGATIVE) Urine Occult Blood (NEGATIVE) Urine Nitrite (NEGATIVE) Urine Bilirubin (NEGATIVE) Urine Urobilinogen (0.2-1.0) mg/dL Ur Leukocyte Esterase (NEGATIVE) Urine RBC /HPF Urine WBC (0-5/HPF) /HPF Ur Epithelial Cells /HPF Amorphous Sediment (0/HPF) /HPF Urine Bacteria (0-FEW/HPF) /HPF Hyaline Casts /LPF Urine Mucus /LPF Urine Other Urine Opiates Screen (NEGATIVE) Ur Oxycodone Screen (NEGATIVE) Urine Methadone Screen (NEGATIVE) Ur Barbiturates Screen (NEGATIVE) U Tricyclic Antidepress (NEGATIVE) Ur Phencyclidine Scrn (NEGATIVE) Ur Amphetamine Screen (NEGATIVE) U Methamphetamines Scrn (NEGATIVE) Urine MDMA Screen (NEGATIVE) U Benzodiazepines Scrn (NEGATIVE) Urine Cocaine Screen (NEGATIVE) U Marijuana (THC) Screen (NEGATIVE) Ethyl Alcohol < 5 mg/dL Ketones Negative 07/09/18 07/09/18 07/09/18 Range/Units 15:45 17:10 19:03 WBC (5.0-10.0) 10^3/uL RBC (4.6-6.2) 10^6/uL Hgb (14.0-18.0) g/dL Hct (40.0-54.0) % MCV (80-100) fL MCH (27.0-34.0) pg MCHC (33.0-35.0) g/dL Plt Count (150-450) 10^3/uL Neut % (Auto) (42.2-75.2) % Lymph % (Auto) (20.5-50.1) % [place] % (Auto) (2-8) % Eos % (Auto) (1.0-3.0) % Baso % (Auto) (0.0-1.0) % ABG pH 7.31 L (7.35-7.45) ABG pCO2 40 (35-45) mmHg ABG pO2 84 (70-100) mmHg ABG HCO3 19.5 L (22-26) mmol/L ABG O2 Saturation 96 (95-100) % ABG Base Excess -6 L ((-2)-(+3)) mmol/L Gabriel Test Positive O2 Delivery Device Room air Sodium (135-145) mmol/L Potassium (3.6-5.0) mmol/L Chloride (101-111) mmol/L Carbon Dioxide (21.0-31.0) mmol/L Anion Gap BUN (7-18) mg/dL Creatinine (0.6-1.3) mg/dL Est Cr Clr Drug Dosing Estimated GFR (MDRD) BUN/Creatinine Ratio Glucose (74-105) mg/dL POC Glucose 215 H 287 H (70-105) mg/dl Lactic Acid (0.5-2.2) mmol/L Calcium (8.4-10.2) mg/dl Total Bilirubin (0.2-1.0) mg/dL AST (10-42) IU/L ALT (10-60) IU/L Alkaline Phosphatase (42-121) IU/L Total Protein (6.7-8.2) g/dl Albumin (3.2-5.5) g/dl Globulin Albumin/Globulin Ratio Amylase (28-100) U/L Lipase (22-51) U/L Urine Color (YELLOW) Urine Appearance (CLEAR) Urine pH (5.0-9.0) Ur Specific [place] (1.005-1.030) Urine Protein (NEGATIVE) Urine Glucose (UA) (NEGATIVE) Urine Ketones (NEGATIVE) Urine Occult Blood (NEGATIVE) Urine Nitrite (NEGATIVE) Urine Bilirubin (NEGATIVE) Urine Urobilinogen (0.2-1.0) mg/dL Ur Leukocyte Esterase (NEGATIVE) Urine RBC /HPF Urine WBC (0-5/HPF) /HPF Ur Epithelial Cells /HPF Amorphous Sediment (0/HPF) /HPF Urine Bacteria (0-FEW/HPF) /HPF Hyaline Casts /LPF Urine Mucus /LPF Urine Other Urine Opiates Screen (NEGATIVE) Ur Oxycodone Screen (NEGATIVE) Urine Methadone Screen (NEGATIVE) Ur Barbiturates Screen (NEGATIVE) U Tricyclic Antidepress (NEGATIVE) Ur Phencyclidine Scrn (NEGATIVE) Ur Amphetamine Screen (NEGATIVE) U Methamphetamines Scrn (NEGATIVE) Urine MDMA Screen (NEGATIVE) U Benzodiazepines Scrn (NEGATIVE) Urine Cocaine Screen (NEGATIVE) U Marijuana (THC) Screen (NEGATIVE) Ethyl Alcohol mg/dL Ketones 07/09/18 07/09/18 07/10/18 Range/Units 21:08 23:07 01:01 WBC (5.0-10.0) 10^3/uL RBC (4.6-6.2) 10^6/uL Hgb (14.0-18.0) g/dL Hct (40.0-54.0) % MCV (80-100) fL MCH (27.0-34.0) pg MCHC (33.0-35.0) g/dL Plt Count (150-450) 10^3/uL Neut % (Auto) (42.2-75.2) % Lymph % (Auto) (20.5-50.1) % [place] % (Auto) (2-8) % Eos % (Auto) (1.0-3.0) % Baso % (Auto) (0.0-1.0) % ABG pH (7.35-7.45) ABG pCO2 (35-45) mmHg ABG pO2 (70-100) mmHg ABG HCO3 (22-26) mmol/L ABG O2 Saturation (95-100) % ABG Base Excess ((-2)-(+3)) mmol/L Gabriel Test O2 Delivery Device Sodium (135-145) mmol/L Potassium (3.6-5.0) mmol/L Chloride (101-111) mmol/L Carbon Dioxide (21.0-31.0) mmol/L Anion Gap BUN (7-18) mg/dL Creatinine (0.6-1.3) mg/dL Est Cr Clr Drug Dosing Estimated GFR (MDRD) BUN/Creatinine Ratio Glucose (74-105) mg/dL POC Glucose 223 H 193 H 141 H (70-105) mg/dl Lactic Acid (0.5-2.2) mmol/L Calcium (8.4-10.2) mg/dl Total Bilirubin (0.2-1.0) mg/dL AST (10-42) IU/L ALT (10-60) IU/L Alkaline Phosphatase (42-121) IU/L Total Protein (6.7-8.2) g/dl Albumin (3.2-5.5) g/dl Globulin Albumin/Globulin Ratio Amylase (28-100) U/L Lipase (22-51) U/L Urine Color (YELLOW) Urine Appearance (CLEAR) Urine pH (5.0-9.0) Ur Specific [place] (1.005-1.030) Urine Protein (NEGATIVE) Urine Glucose (UA) (NEGATIVE) Urine Ketones (NEGATIVE) Urine Occult Blood (NEGATIVE) Urine Nitrite (NEGATIVE) Urine Bilirubin (NEGATIVE) Urine Urobilinogen (0.2-1.0) mg/dL Ur Leukocyte Esterase (NEGATIVE) Urine RBC /HPF Urine WBC (0-5/HPF) /HPF Ur Epithelial Cells /HPF Amorphous Sediment (0/HPF) /HPF Urine Bacteria (0-FEW/HPF) /HPF Hyaline Casts /LPF Urine Mucus /LPF Urine Other Urine Opiates Screen (NEGATIVE) Ur Oxycodone Screen (NEGATIVE) Urine Methadone Screen (NEGATIVE) Ur Barbiturates Screen (NEGATIVE) U Tricyclic Antidepress (NEGATIVE) Ur Phencyclidine Scrn (NEGATIVE) Ur Amphetamine Screen (NEGATIVE) U Methamphetamines Scrn (NEGATIVE) Urine MDMA Screen (NEGATIVE) U Benzodiazepines Scrn (NEGATIVE) Urine Cocaine Screen (NEGATIVE) U Marijuana (THC) Screen (NEGATIVE) Ethyl Alcohol mg/dL Ketones 07/10/18 07/10/18 07/10/18 Range/Units 05:10 07:44 11:17 WBC (5.0-10.0) 10^3/uL RBC (4.6-6.2) 10^6/uL Hgb (14.0-18.0) g/dL Hct (40.0-54.0) % MCV (80-100) fL MCH (27.0-34.0) pg MCHC (33.0-35.0) g/dL Plt Count (150-450) 10^3/uL Neut % (Auto) (42.2-75.2) % Lymph % (Auto) (20.5-50.1) % [place] % (Auto) (2-8) % Eos % (Auto) (1.0-3.0) % Baso % (Auto) (0.0-1.0) % ABG pH (7.35-7.45) ABG pCO2 (35-45) mmHg ABG pO2 (70-100) mmHg ABG HCO3 (22-26) mmol/L ABG O2 Saturation (95-100) % ABG Base Excess ((-2)-(+3)) mmol/L Gabriel Test O2 Delivery Device Sodium (135-145) mmol/L Potassium (3.6-5.0) mmol/L Chloride (101-111) mmol/L Carbon Dioxide (21.0-31.0) mmol/L Anion Gap BUN (7-18) mg/dL Creatinine (0.6-1.3) mg/dL Est Cr Clr Drug Dosing Estimated GFR (MDRD) BUN/Creatinine Ratio Glucose (74-105) mg/dL POC Glucose 128 H 167 H 203 H (70-105) mg/dl Lactic Acid (0.5-2.2) mmol/L Calcium (8.4-10.2) mg/dl Total Bilirubin (0.2-1.0) mg/dL AST (10-42) IU/L ALT (10-60) IU/L Alkaline Phosphatase (42-121) IU/L Total Protein (6.7-8.2) g/dl Albumin (3.2-5.5) g/dl Globulin Albumin/Globulin Ratio Amylase (28-100) U/L Lipase (22-51) U/L Urine Color (YELLOW) Urine Appearance (CLEAR) Urine pH (5.0-9.0) Ur Specific [place] (1.005-1.030) Urine Protein (NEGATIVE) Urine Glucose (UA) (NEGATIVE) Urine Ketones (NEGATIVE) Urine Occult Blood (NEGATIVE) Urine Nitrite (NEGATIVE) Urine Bilirubin (NEGATIVE) Urine Urobilinogen (0.2-1.0) mg/dL Ur Leukocyte Esterase (NEGATIVE) Urine RBC /HPF Urine WBC (0-5/HPF) /HPF Ur Epithelial Cells /HPF Amorphous Sediment (0/HPF) /HPF Urine Bacteria (0-FEW/HPF) /HPF Hyaline Casts /LPF Urine Mucus /LPF Urine Other Urine Opiates Screen (NEGATIVE) Ur Oxycodone Screen (NEGATIVE) Urine Methadone Screen (NEGATIVE) Ur Barbiturates Screen (NEGATIVE) U Tricyclic Antidepress (NEGATIVE) Ur Phencyclidine Scrn (NEGATIVE) Ur Amphetamine Screen (NEGATIVE) U Methamphetamines Scrn (NEGATIVE) Urine MDMA Screen (NEGATIVE) U Benzodiazepines Scrn (NEGATIVE) Urine Cocaine Screen (NEGATIVE) U Marijuana (THC) Screen (NEGATIVE) Ethyl Alcohol mg/dL Ketones Med Orders - Current: Current Medications Heparin Sodium (Porcine) (Heparin Sodium) 5,000 units SUBCUT Q8H [facility] Last Admin: 07/10/18 08:28 Dose: 5,000 units Sodium Chloride (Normal Saline) 1,000 mls @ 150 mls/hr IV ASDIRECTED [facility] Last Admin: 07/10/18 07:37 Dose: 150 mls/hr Insulin Glargine (Lantus) 6 unit SUBCUT BEDTIME [facility] Last Admin: 07/09/18 21:22 Dose: 6 units Insulin Human Lispro (Humalog) 0 unit SUBCUT Q2HR [facility]; Protocol Last Admin: 07/10/18 11:17 Dose: Not Given Levetiracetam (Keppra) 500 mg PO BIDMEALS [facility] Last Admin: 07/10/18 07:58 Dose: 500 mg Metoclopramide HCl (Reglan) 10 mg PO TIDAC [facility] Last Admin: 07/10/18 11:25 Dose: 10 mg Ondansetron HCl (Zofran) 4 mg IV Q4H PRN PRN Reason: Nausea/Vomiting Last Admin: 07/10/18 07:59 Dose: 4 mg Prednisone (Prednisone) 40 mg PO WITHBREAKFAST [facility] Stop: 07/15/18 11:01 Last Admin: 07/10/18 11:25 Dose: 40 mg Sodium Chloride (Saline Flush) 10 ml FLUSH ASDIRECTED PRN PRN Reason: Keep Vein Open Last Admin: 07/10/18 11:24 Dose: 10 ml Trazodone HCl (Trazodone) 50 mg PO BEDTIME [facility] Last Admin: 07/09/18 21:22 Dose: 50 mg Discontinued Medications Diphenhydramine HCl (Benadryl) 25 mg IVPUSH ONETIME ONE Stop: 07/09/18 15:13 Last Admin: 07/09/18 15:18 Dose: 25 mg Hydromorphone HCl (Dilaudid) 1 mg IVPUSH ONETIME ONE Stop: 07/09/18 15:13 Last Admin: 07/09/18 15:17 Dose: 1 mg Sodium Chloride (Normal Saline) 1,000 mls @ 999 mls/hr IV .BOLUS ONE Stop: 07/09/18 15:51 Last Admin: 07/09/18 15:06 Dose: 999 mls/hr Sodium Chloride (Normal Saline) 1,000 mls @ 999 mls/hr IV .BOLUS ONE Stop: 07/09/18 16:12 Last Admin: 07/09/18 16:29 Dose: 999 mls/hr Sodium Chloride (Normal Saline) 1,000 mls @ 999 mls/min IV .BOLUS ONE Stop: 07/09/18 16:58 Last Admin: 07/09/18 17:27 Dose: 999 mls/min Metoclopramide HCl (Reglan) 10 mg IVPUSH ONETIME ONE Stop: 07/09/18 15:12 Last Admin: 07/09/18 15:18 Dose: 10 mg Metoclopramide HCl (Reglan) 5 mg IVPUSH Q6H [facility] Stop: 07/10/18 11:16 Last Admin: 07/10/18 05:14 Dose: 5 mg Ondansetron HCl (Zofran) 4 mg IV ONETIME ONE Stop: 07/09/18 14:52 Last Admin: 07/09/18 15:07 Dose: 4 mg Sodium Chloride (Saline Flush) 10 ml FLUSH ASDIRECTED PRN PRN Reason: Keep Vein Open Last Admin: 07/10/18 07:59 Dose: 10 ml - Exam General: Reports: Alert, Oriented Lungs: Reports: Clear to Auscultation GI/Abdominal Exam: Normal Bowel Sounds, Soft, Non-Tender, No Organomegaly, No Distention, No Abnormal Bruit Extremities: Other (left AKA, right BKA) Skin: Reports: Warm, Dry, Intact Psy/Mental Status: Reports: Alert, Normal Affect, Normal Mood
== END 2018-07-10 12:25 | disposition home or self-care (01) ==
LOC: DL.ED 14:38 → UNDOADMOB 16:37 → DL.MS 16:37
PROVIDERS: ADMIT Hospitalist; ATTEND Internal Medicine
DX: R11.2 Nausea with vomiting, unspecified (principal); E86.0 Dehydration; I10 Essential (primary) hypertension; E11.65 Type 2 diabetes mellitus with hyperglycemia; F17.200 Nicotine dependence, unspecified, uncomplicated; G40.909 Epilepsy, unspecified, not intractable, without status epilepticus; Z88.8 Allergy status to other drugs, medicaments and biological substances; Z89.512 Acquired absence of left leg below knee; Z89.511 Acquired absence of right leg below knee; Z79.4 Long term (current) use of insulin; Z79.899 Other long term (current) drug therapy
CPT/HCPCS: 36415; 36600; 80053; 80305; 81001; 82009; 82150; 82803; 82962; 83605; 83690; 85025; 87040; 96361; 96374; 96375; 99284; A9270; G0480; J1170; J1200; J1644; J1815; J2405; J2765; J7030; 96372; 96376; G0378

== ENCOUNTER 2018-07-14 08:46 | Emergency (ER) | payer MEDICARE, MEDICAID ==
--- NOTE | 2018-07-14 08:56 | EDM.PDOC ---
ED HPI GENERAL MEDICAL PROBLEM - General Chief Complaint: Abdominal Pain Stated Complaint: STOMACH PAIN Time Seen by Provider: 07/14/18 08:56 Source of Information: Reports: Patient, Old Records, RN, RN Notes Reviewed History Limitations: Reports: No Limitations - History of Present Illness INITIAL COMMENTS - FREE TEXT/NARRATIVE: Pt presents to ER with c/o recurrent upper abdominal pain with nausea and vomiting. Pt states the symptoms are worse if he tries to eat or drink anything. He reports his appetite is good, and he feels hungry, but cannot keep anything down. He reports episodes of dry heaves which last for a couple of hours. He has Reglan at home, but could not keep it down. He finds that staying in a hot shower or bath gives some relief. Pt admits to using marijuana chronically to help with nausea, and states it used to work, but it is no longer helping. I discussed cannabinoid hyperemesis syndrome with him, and he agrees that this may be part of the problem. He is likely to have some degree of diabetic gastroparesis as well, but he states that he has never seen a specialist about it. Pt denies fever, chills, diarrhea, constipation, or urinary symptoms. 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: Reports: Other Medication(s) Right Lower Abdomen Pain Score (Numeric/FACES): 10 - Related Data Allergies Allergy/AdvReac Type Severity Reaction Status Date / Time phenobarbital Allergy Dizziness Verified 07/14/18 08:53 phenytoin sodium Allergy Cannot Verified 07/14/18 08:53 [From Dilantin] Remember Home Meds: Home Meds Insulin Detemir [Levemir] 6 units SQ BEDTIME 04/29/14 [History] levETIRAcetam [Keppra] 500 mg PO BIDMEALS 04/29/14 [History] Loperamide [Imodium] 6 mg PO DAILY 02/13/15 [History] Pioglitazone HCl 7.5 mg PO DAILY 07/09/18 [History] traZODone HCl [Trazodone HCl] 50 mg PO BEDTIME 07/09/18 [History] Metoclopramide [Reglan] 5 mg PO TIDAC 30 Days #90 tab 07/10/18 [Rx] Past Medical History HEENT History: Reports: None Cardiovascular History: Reports: Hypertension Respiratory History: Reports: None Gastrointestinal History: Reports: Gastritis, Other (See Below) Genitourinary History: Reports: UTI, Recurrent Musculoskeletal History: Reports: Amputation, Other (See Below) Other Musculoskeletal History: 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 Neurological History: Reports: Seizure Psychiatric History: Reports: None Endocrine/Metabolic History: Reports: Diabetes, Type II Hematologic History: Reports: None Immunologic History: Reports: None Oncologic (Cancer) History: Reports: None Dermatologic History: Reports: None - Infectious Disease History Infectious Disease History: Reports: None - Past Surgical History Cardiovascular Surgical History: Reports: None GI Surgical History: Reports: Cholecystectomy Male Surgical History: Reports: None Endocrine Surgical History: Reports: None Neurological Surgical History: Reports: None Musculoskeletal Surgical History: Reports: Amputation Social & Family History - Family History Family Medical History: Noncontributory - Caffeine Use Caffeine Use: Reports: Coffee - Living Situation & Occupation Living situation: Reports: with Family Occupation: Disabled ED ROS GENERAL - Review of Systems Review Of Systems: ROS reveals no pertinent complaints other than HPI. ED EXAM, GI/ABD - Physical Exam Exam: See Below Exam Limited By: No Limitations General Appearance: Alert, WD/WN, No Apparent Distress Eyes: Bilateral: Normal Appearance, EOMI Nose: Normal Inspection, Normal Mucosa, No Blood Throat/Mouth: Normal Inspection, Normal Voice, No Airway Compromise, Other ( Moist oral mucosa) Head: Atraumatic, Normocephalic Neck: Normal Inspection, Supple, Non-Tender, Full Range of Motion Respiratory/Chest: No Respiratory Distress, Lungs Clear, Normal Breath Sounds, No Accessory Muscle Use, Chest Non-Tender Cardiovascular: Regular Rate, Rhythm, Tachycardia GI/Abdominal Exam: Soft, Non-Tender, No Distention, No Abnormal Bruit, No Mass, Abnormal Bowel Sounds (Hypoactive). No: Guarding, Rigid, Rebound (Male) Exam: Deferred Rectal (Males) Exam: Deferred Back Exam: Normal Inspection Extremities: Other (B/L lower ext. amputee) Neurological: Alert, Oriented, CN II-XII Intact, Normal Cognition, No Motor/ Sensory Deficits Psychiatric: Normal Affect, Normal Mood Skin Exam: Warm, Dry, Intact, Normal Color, No Rash Course - Vital Signs Last Recorded V/S: Last Vital Signs Temp 36.7 C 07/14/18 08:48 Pulse 102 H 07/14/18 08:48 Resp 18 07/14/18 08:48 BP 152/93 H 07/14/18 08:48 Pulse Ox 100 07/14/18 08:48 - Orders/Labs/Meds Orders: Active Orders 24 hr Category Date Time Status Peripheral IV Care [RC] . DIRECTED Care 07/14/18 09:19 Active Sodium Chloride 0.9% [Saline Flush] Med 07/14/18 09:18 Active 10 ml FLUSH ASDIRECTED PRN Peripheral IV Insertion Adult [OM.PC] Stat Oth 07/14/18 09:18 Ordered Medication Orders Sodium Chloride (Saline Flush) 10 ml FLUSH ASDIRECTED PRN PRN Reason: Keep Vein Open Last Admin: 07/14/18 09:27 Dose: 10 ml Labs: Laboratory Tests 07/14/18 07/14/18 Range/Units 09:23 09:23 WBC 7.1 (5.0-10.0) 10^3/uL RBC 5.24 (4.6-6.2) 10^6/uL Hgb 16.0 (14.0-18.0) g/dL Hct 45.1 (40.0-54.0) % MCV 86.1 (80-100) fL MCH 30.5 (27.0-34.0) pg MCHC 35.5 H (33.0-35.0) g/dL Plt Count 207 (150-450) 10^3/uL Neut % (Auto) 77.2 H (42.2-75.2) % Lymph % (Auto) 12.9 L (20.5-50.1) % [place] % (Auto) 8.3 H (2-8) % Eos % (Auto) 0.8 L (1.0-3.0) % Baso % (Auto) 0.8 (0.0-1.0) % Sodium 139 (135-145) mmol/L Potassium 3.5 L (3.6-5.0) mmol/L Chloride 107 (101-111) mmol/L Carbon Dioxide 20.0 L (21.0-31.0) mmol/L Anion Gap 15.5 BUN 21 H (7-18) mg/dL Creatinine 1.2 (0.6-1.3) mg/dL Est Cr Clr Drug Dosing 75.21 mL/min Estimated GFR (MDRD) > 60 BUN/Creatinine Ratio 17.50 Glucose 262 H (74-105) mg/dL Calcium 9.1 (8.4-10.2) mg/dl Total Bilirubin 1.6 H (0.2-1.0) mg/dL AST 24 (10-42) IU/L ALT 16 (10-60) IU/L Alkaline Phosphatase 82 (42-121) IU/L Total Protein 7.5 (6.7-8.2) g/dl Albumin 4.2 (3.2-5.5) g/dl Globulin 3.3 Albumin/Globulin Ratio 1.27 Amylase 39 (28-100) U/L Lipase 21 L (22-51) U/L Meds: Medications Generic Name Dose Route Start Last Admin Trade Name Freq PRN Reason Stop Dose Admin Sodium Chloride 10 ml 07/14/18 09:18 07/14/18 09:27 Saline Flush FLUSH 10 ml ASDIRECTED PRN Administration Keep Vein Open Discontinued Medications Generic Name Dose Route Start Last Admin Trade Name Freq PRN Reason Stop Dose Admin Diphenhydramine HCl 25 mg 07/14/18 09:20 07/14/18 09:28 Benadryl IVPUSH 07/14/18 09:21 25 mg ONETIME ONE Administration Sodium Chloride 1,000 mls @ 999 mls/hr 07/14/18 09:19 07/14/18 09:26 Normal Saline IV 07/14/18 10:19 999 mls/hr .BOLUS ONE Administration Ondansetron HCl 8 mg/ Sodium 54 mls @ 200 mls/hr 07/14/18 10:03 07/14/18 10: 11 Chloride IV 07/14/18 10:19 200 mls/hr ONETIME ONE Administration Metoclopramide HCl 10 mg 07/14/18 09:19 07/14/18 09:27 Reglan IVPUSH 07/14/18 09:20 10 mg ONETIME ONE Administration - Re-Assessments/Exams Free Text/Narrative Re-Assessment/Exam: 07/14/18 Pt is tolerating po intake following tx in ER, and wishes to be d/c'd home. Departure - Departure Time of Disposition: 10:28 Disposition: Home, Self-Care 01 Condition: Good Clinical Impression: Gastroparesis due to DM, Cannabinoid hyperemesis syndrome - Discharge Information *PRESCRIPTION DRUG MONITORING PROGRAM REVIEWED*: Not Applicable *COPY OF PRESCRIPTION DRUG MONITORING REPORT IN PATIENT NORRIS: Not Applicable Instructions: Cannabinoid Hyperemesis Syndrome, Gastroparesis Forms: ED Department Discharge Additional Instructions: Rx: Zofran 4mg Discontinue marijuana use to reduce stomach pain and vomiting. Follow up in clinic in 3 to 5 days for recheck. - My Orders Last 24 Hours: My Active Orders 07/14/18 09:18 Sodium Chloride 0.9% [Saline Flush] 10 ml FLUSH ASDIRECTED PRN Peripheral IV Insertion Adult [OM.PC] Stat 07/14/18 09:19 Peripheral IV Care [RC] . DIRECTED - Assessment/Plan Last 24 Hours: My Active Orders 07/14/18 09:18 Sodium Chloride 0.9% [Saline Flush] 10 ml FLUSH ASDIRECTED PRN Peripheral IV Insertion Adult [OM.PC] Stat 07/14/18 09:19 Peripheral IV Care [RC] . DIRECTED
[2018-07-14] MEDS ORDERED: Sodium Chloride 0.9% 10 ML Syringe FLUSH PRN (09:18)
[2018-07-14] MEDS ORDERED: Metoclopramide 10 MG/2 ML SDV IVPUSH ONE (09:19)
[2018-07-14] MEDS ORDERED: Sodium Chloride 0.9% 1,000 ML IV ONE (09:19)
[2018-07-14] MEDS ORDERED: diphenhydrAMINE 50 MG/ML SDV IVPUSH ONE (09:20)
[2018-07-14 09:53] LABS: ANION GAP 15.5; CHLORIDE,CL 107 mmol/L (101-111); SODIUM,NA 139 mmol/L (135-145)
[2018-07-14] MEDS ORDERED: Ondansetron 8 MG in Sodium Chloride 0.9% 50 ML IV ONE (10:03)
[2018-07-14 10:37] VITALS: BP 121/82
== END 2018-07-14 10:39 | disposition home or self-care (01) ==
LOC: DL.ED 08:46
DX: E11.43 Type 2 diabetes mellitus with diabetic autonomic (poly)neuropathy (principal); K31.84 Gastroparesis; F12.288 Cannabis dependence with other cannabis-induced disorder; R11.2 Nausea with vomiting, unspecified; E11.9 Type 2 diabetes mellitus without complications; I10 Essential (primary) hypertension; Z79.4 Long term (current) use of insulin; Z79.899 Other long term (current) drug therapy; Z88.8 Allergy status to other drugs, medicaments and biological substances
CPT/HCPCS: 36415; 80053; 82150; 83690; 85025; 96361; 96365; 96375; 99284; J1200; J2405; J2765; J7030; J7050

== ENCOUNTER 2020-04-26 22:53 | Emergency (ER) | payer MEDICARE, MEDICAID ==
[2020-04-26 23:58] VITALS: BP 161/96; PULSE 138
[2020-04-27] MEDS ORDERED: Ondansetron 4 MG/2 ML SDV IVPUSH ONE (00:03)
[2020-04-27 00:12] LABS: BASE EXCESS ARTERIAL -5 mmol/L ((-2)-(+3)); BICARBONATE,ARTERIAL 19.4 mmol/L (22-26); O2 DELIVERY DEVICE ROOM AIR; O2 SATURATION ARTERIAL 97 % (95-100); PCO2 ARTERIAL 36 mmHg (35-45); PO2 ARTERIAL 101 mmHg (70-100)
[2020-04-27 00:13] LABS: ANION GAP 22.8 mEq/L (7-13)
[2020-04-27 00:14] LABS: ALLEN TEST pos
--- NOTE | 2020-04-27 00:22 | CR ---
PROCEDURE INFORMATION: Exam: XR Chest, 1 View Exam date and time: 04/26/2020 11:45 PM Age: 45 years old Clinical indication: Cough TECHNIQUE: Imaging protocol: XR of the chest Views: 1 view. COMPARISON: CR Chest 1V Frontal 08/06/2016 2:03 PM FINDINGS: Lungs: Unremarkable. No consolidation. Pleural spaces: Unremarkable. No pleural effusion. No pneumothorax. Heart/Mediastinum: Unremarkable. No cardiomegaly. Bones/joints: Unremarkable. Other findings: Bilateral basilar linear scarring. IMPRESSION: No acute abnormality.
[2020-04-27 00:31] LABS: CORONAVIRUS COVID-19 NAA NEGATIVE (NEGATIVE)
[2020-04-27] MEDS ORDERED: Metoclopramide 10 MG/2 ML SDV IVPUSH ONE (00:53)
[2020-04-27] MEDS ORDERED: Sodium Chloride 0.9% 1,000 ML IV ONE (01:01)
--- NOTE | 2020-04-27 01:06 | EDM.PDOC ---
ED HPI GENERAL MEDICAL PROBLEM - General Chief Complaint: Respiratory Problem Stated Complaint: COUGH VOMMITING MUCUS WEAKNESS Time Seen by Provider: 04/27/20 00:05 Source of Information: Reports: Patient History Limitations: Reports: No Limitations - History of Present Illness INITIAL COMMENTS - FREE TEXT/NARRATIVE: ED with c/o coughing/ gagging up mucus today, nausea. Ate breakfast, no lunch or supper. Diabetic, Has not been seen in clinic for years but reports is taking insulin. Abdominal discomfort, cramping, No fever, has been chilled. Middle Abdominal Pain Score (Numeric/FACES): 4 - Related Data Allergies Allergy/AdvReac Type Severity Reaction Status Date / Time phenobarbital Allergy Dizziness Verified 07/14/18 08:53 phenytoin sodium Allergy Cannot Verified 07/14/18 08:53 [From Dilantin] Remember Home Meds: Home Meds Insulin Detemir [Levemir] 6 units SQ BEDTIME 04/29/14 [History] levETIRAcetam [Keppra] 500 mg PO BIDMEALS 04/29/14 [History] Loperamide [Imodium] 6 mg PO DAILY 02/13/15 [History] Pioglitazone HCl 7.5 mg PO DAILY 07/09/18 [History] traZODone HCl [Trazodone HCl] 50 mg PO BEDTIME 07/09/18 [History] Metoclopramide [Reglan] 5 mg PO TIDAC 30 Days #90 tab 07/10/18 [Rx] Past Medical History HEENT History: Reports: None Cardiovascular History: Reports: Hypertension Respiratory History: Reports: None Gastrointestinal History: Reports: Gastritis, Other (See Below) Genitourinary History: Reports: UTI, Recurrent Musculoskeletal History: Reports: Amputation, Other (See Below) Other Musculoskeletal History: 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 Neurological History: Reports: Seizure Psychiatric History: Reports: None Endocrine/Metabolic History: Reports: Diabetes, Type II Hematologic History: Reports: None Immunologic History: Reports: None Oncologic (Cancer) History: Reports: None Dermatologic History: Reports: None - Infectious Disease History Infectious Disease History: Reports: None - Past Surgical History Head Surgeries/Procedures: Reports: None Cardiovascular Surgical History: Reports: None GI Surgical History: Reports: Cholecystectomy Male Surgical History: Reports: None Endocrine Surgical History: Reports: None Neurological Surgical History: Reports: None Musculoskeletal Surgical History: Reports: Amputation Social & Family History - Family History Family Medical History: No Pertinent Family History - Tobacco Use Tobacco Use Status *Q: Current Every Day Tobacco User Years of Tobacco use: 31 Packs/Tins Daily: 0.5 Second Hand Smoke Exposure: Yes - Caffeine Use Caffeine Use: Reports: Coffee - Recreational Drug Use Recreational Drug Use: Yes Drug Use in Last 12 Months: Yes Recreational Drug Type: Reports: Marijuana/Hashish Recreational Drug Use Frequency: Binges - Living Situation & Occupation Living situation: Reports: with Family Occupation: Disabled ED ROS GENERAL - Review of Systems Review Of Systems: Comprehensive ROS is negative, except as noted in HPI. ED EXAM, GENERAL - Physical Exam Exam: See Below Exam Limited By: No Limitations General Appearance: Alert, Mild Distress Eye Exam: Bilateral Eye: EOMI, PERRL Ears: Normal External Exam, Hearing Grossly Normal Ear Exam: Bilateral Ear: Auricle Normal Nose: Normal Inspection, Nasal Tenderness Throat/Mouth: Normal Inspection, Normal Oropharynx, Normal Voice Head: Atraumatic, Normocephalic Neck: Normal Inspection Respiratory/Chest: No Respiratory Distress, Lungs Clear Cardiovascular: Normal Peripheral Pulses, Regular Rate, Rhythm GI/Abdominal: Normal Bowel Sounds, Soft Back Exam: Normal Inspection, Full Range of Motion Extremities: Other (bilateral amputee) Neurological: Alert, Oriented, Normal Cognition Psychiatric: Anxious Skin Exam: Warm, Dry, Intact Course - Vital Signs Last Recorded V/S: Last Vital Signs Temp 91.4 F L 04/26/20 23:48 Pulse 138 H 04/26/20 23:48 Resp 20 04/26/20 23:48 BP 161/96 H 04/26/20 23:48 Pulse Ox 100 04/26/20 23:48 - Orders/Labs/Meds Labs: Laboratory Tests 04/26/20 04/26/20 04/26/20 Range/Units 00:10 23:40 23:41 WBC (5.0-10.0) 10^3/uL RBC (4.6-6.2) 10^6/uL Hgb (14.0-18.0) g/dL Hct (40.0-54.0) % MCV (80-100) fL MCH (27.0-34.0) pg MCHC (33.0-35.0) g/dL Plt Count (150-450) 10^3/uL Neut % (Auto) (42.2-75.2) % Lymph % (Auto) (20.5-50.1) % [place] % (Auto) (2-8) % Eos % (Auto) (1.0-3.0) % Baso % (Auto) (0.0-1.0) % ABG pH 7.35 (7.35-7.45) ABG pCO2 36 (35-45) mmHg ABG pO2 101 H (70-100) mmHg ABG HCO3 19.4 L (22-26) mmol/L ABG O2 Saturation 97 (95-100) % ABG Base Excess -5 L ((-2)-(+3)) mmol/L Gabriel Test pos O2 Delivery Device Room air Sodium (136-145) mmol/L Potassium (3.5-5.1) mmol/L Chloride (98-107) mmol/L Carbon Dioxide (21-32) mmol/L Anion Gap (7-13) mEq/L BUN (7-18) mg/dL Creatinine (0.70-1.30) mg/dL Est Cr Clr Drug Dosing mL/min Estimated GFR (MDRD) BUN/Creatinine Ratio (No establ ref range) Glucose (74-99) mg/dL POC Glucose 221 H (70-105) mg/dl Lactic Acid (0.4-2.0) mmol/L Calcium (8.5-10.1) mg/dL Magnesium (1.8-2.4) mg/dL Total Bilirubin (0.2-1.0) mg/dL AST (15-37) U/L ALT (16-63) U/L Alkaline Phosphatase (46-116) U/L Total Protein (6.4-8.2) g/dL Albumin (3.4-5.0) g/dL Globulin Albumin/Globulin Ratio Amylase (25-115) U/L Lipase (73-393) U/L Ketones Influenza Type A RNA Negative (NEGATIVE) Influenza Type B RNA Negative (NEGATIVE) SARS-CoV-2 RNA ([facility]) Negative (NEGATIVE) 04/26/20 04/26/20 04/26/20 Range/Units 23:42 23:42 23:42 WBC 10.4 H (5.0-10.0) 10^3/uL RBC 5.44 (4.6-6.2) 10^6/uL Hgb 16.9 (14.0-18.0) g/dL Hct 49.6 (40.0-54.0) % MCV 91.2 D (80-100) fL MCH 31.1 (27.0-34.0) pg MCHC 34.1 (33.0-35.0) g/dL Plt Count 209 (150-450) 10^3/uL Neut % (Auto) 79.4 H (42.2-75.2) % Lymph % (Auto) 14.4 L (20.5-50.1) % [place] % (Auto) 4.9 (2-8) % Eos % (Auto) 1.0 (1.0-3.0) % Baso % (Auto) 0.3 (0.0-1.0) % ABG pH (7.35-7.45) ABG pCO2 (35-45) mmHg ABG pO2 (70-100) mmHg ABG HCO3 (22-26) mmol/L ABG O2 Saturation (95-100) % ABG Base Excess ((-2)-(+3)) mmol/L Gabriel Test O2 Delivery Device Sodium 140 (136-145) mmol/L Potassium 3.8 (3.5-5.1) mmol/L Chloride 102 (98-107) mmol/L Carbon Dioxide 19 L (21-32) mmol/L Anion Gap 22.8 H (7-13) mEq/L BUN 31 H (7-18) mg/dL Creatinine 1.76 H (0.70-1.30) mg/dL Est Cr Clr Drug Dosing 36.70 mL/min Estimated GFR (MDRD) 42 BUN/Creatinine Ratio 17.6 (No establ ref range) Glucose 241 H (74-99) mg/dL POC Glucose (70-105) mg/dl Lactic Acid 4.2 H* (0.4-2.0) mmol/L Calcium 9.6 (8.5-10.1) mg/dL Magnesium 2.2 (1.8-2.4) mg/dL Total Bilirubin 0.8 (0.2-1.0) mg/dL AST 22 (15-37) U/L ALT 20 (16-63) U/L Alkaline Phosphatase 120 H (46-116) U/L Total Protein 9.3 H (6.4-8.2) g/dL Albumin 4.6 (3.4-5.0) g/dL Globulin 4.7 Albumin/Globulin Ratio 1.0 Amylase 68 (25-115) U/L Lipase 61 L (73-393) U/L Ketones Influenza Type A RNA (NEGATIVE) Influenza Type B RNA (NEGATIVE) SARS-CoV-2 RNA ([facility]) (NEGATIVE) 04/26/20 Range/Units 23:42 WBC (5.0-10.0) 10^3/uL RBC (4.6-6.2) 10^6/uL Hgb (14.0-18.0) g/dL Hct (40.0-54.0) % MCV (80-100) fL MCH (27.0-34.0) pg MCHC (33.0-35.0) g/dL Plt Count (150-450) 10^3/uL Neut % (Auto) (42.2-75.2) % Lymph % (Auto) (20.5-50.1) % [place] % (Auto) (2-8) % Eos % (Auto) (1.0-3.0) % Baso % (Auto) (0.0-1.0) % ABG pH (7.35-7.45) ABG pCO2 (35-45) mmHg ABG pO2 (70-100) mmHg ABG HCO3 (22-26) mmol/L ABG O2 Saturation (95-100) % ABG Base Excess ((-2)-(+3)) mmol/L Gabriel Test O2 Delivery Device Sodium (136-145) mmol/L Potassium (3.5-5.1) mmol/L Chloride (98-107) mmol/L Carbon Dioxide (21-32) mmol/L Anion Gap (7-13) mEq/L BUN (7-18) mg/dL Creatinine (0.70-1.30) mg/dL Est Cr Clr Drug Dosing mL/min Estimated GFR (MDRD) BUN/Creatinine Ratio (No establ ref range) Glucose (74-99) mg/dL POC Glucose (70-105) mg/dl Lactic Acid (0.4-2.0) mmol/L Calcium (8.5-10.1) mg/dL Magnesium (1.8-2.4) mg/dL Total Bilirubin (0.2-1.0) mg/dL AST (15-37) U/L ALT (16-63) U/L Alkaline Phosphatase (46-116) U/L Total Protein (6.4-8.2) g/dL Albumin (3.4-5.0) g/dL Globulin Albumin/Globulin Ratio Amylase (25-115) U/L Lipase (73-393) U/L Ketones Positive Influenza Type A RNA (NEGATIVE) Influenza Type B RNA (NEGATIVE) SARS-CoV-2 RNA ([facility]) (NEGATIVE) Meds: Medications Discontinued Medications Generic Name Dose Route Start Last Admin Trade Name Freq PRN Reason Stop Dose Admin Sodium Chloride 1,000 mls @ 999 mls/hr 04/27/20 01:01 04/27/20 01:06 Normal Saline IV 04/27/20 02:01 999 mls/hr .BOLUS ONE Administration Metoclopramide HCl 10 mg 04/27/20 00:53 04/27/20 01:01 Reglan IVPUSH 04/27/20 00:54 10 mg ONETIME ONE Administration Ondansetron HCl 4 mg 04/27/20 00:03 04/27/20 00:27 Zofran IVPUSH 04/27/20 00:04 4 mg ONETIME ONE Administration - Re-Assessments/Exams Free Text/Narrative Re-Assessment/Exam: 04/27/20 01:[address] reports diarrhea, States usual stephanie smoking more pot. BS usually 130's when he checks. Admits missing last 4 appointments, Acknowledges need for more reliable transportation, Requesting release. Nausea improved now that having bowel movements, pain improved. Departure - Departure Time of Disposition: 01:50 Disposition: Home, Self-Care 01 Condition: Fair Clinical Impression: Hyperglycemia, Cannabis abuse Vomiting Qualifiers: Vomiting type: unspecified Vomiting Intractability: unspecified Nausea presence: with nausea Qualified Code(s): R11.2 - Nausea with vomiting, unspecified - Discharge Information *PRESCRIPTION DRUG MONITORING PROGRAM REVIEWED*: No *COPY OF PRESCRIPTION DRUG MONITORING REPORT IN PATIENT NORRIS: No Instructions: Hyperglycemia, [id number], Nausea and Vomiting, Adult Forms: ED Department Discharge Additional Instructions: stop using cannabis as makes nausea worse clinic follow up this week urgent follow up if vomiting worsens monitor blood sugars take insulin Sepsis Event Note (ED) - Evaluation Sepsis Screening Result: No Definite Risk
== END 2020-04-27 02:06 | disposition home or self-care (01) ==
LOC: DL.ED 22:53
DX: E11.65 Type 2 diabetes mellitus with hyperglycemia (principal); R11.2 Nausea with vomiting, unspecified; R56.9 Unspecified convulsions; F12.10 Cannabis abuse, uncomplicated; I10 Essential (primary) hypertension; Z20.822 Contact with and (suspected) exposure to COVID-19; Z88.8 Allergy status to other drugs, medicaments and biological substances; Z79.4 Long term (current) use of insulin; Z79.899 Other long term (current) drug therapy; R05 Cough
CPT/HCPCS: 0240U; 36415; 36600; 71045; 80053; 82009; 82150; 82803; 82962; 83605; 83690; 83735; 85025; 87040; 96374; 99284; J2405; J2765; J7030; 96375

== ENCOUNTER 2020-08-26 11:36 | Emergency (ER) | payer MEDICARE, MEDICAID ==
[2020-08-26 11:52] VITALS: BP 156/86; PULSE 118
[2020-08-26] MEDS: Metoclopramide 10 MG/2 ML SDV IVPUSH ONE (11:58)
--- NOTE | 2020-08-26 12:12 | EDM.PDOC ---
ED HPI GENERAL MEDICAL PROBLEM - General Chief Complaint: Gastrointestinal Problem Stated Complaint: AMBULANCE Time Seen by Provider: 08/26/20 11:55 Source of Information: Reports: Patient History Limitations: Reports: No Limitations - History of Present Illness INITIAL COMMENTS - FREE TEXT/NARRATIVE: This 45 yo male patient was brought to the ED by [facility] due to nausea and vomit ing. The patient has a history of gastritis, but also got the Melecio and Melecio vaccine yesterday. The patient reports his nausea/vomiting started this morning at about 0700. The patient reports he has not been able to keep anything down since his symptoms started. The patient reports he was on Reglan about 2 months ago, but ran out of his medications. The patient admits to smoking marijuana about 5 days ago, but denies any other drug use. 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 Onset: Today Duration: Hour(s):, Constant, Getting Worse Location: Reports: Abdomen Quality: Reports: Other Severity: Moderate Improves with: Reports: None Worsens with: Reports: None Context: Reports: Other Associated Symptoms: Reports: Nausea/Vomiting Generalized Pain Score (Numeric/FACES): 7 - Related Data Allergies Allergy/AdvReac Type Severity Reaction Status Date / Time phenobarbital Allergy Dizziness Verified 08/26/20 11:42 phenytoin sodium Allergy Cannot Verified 08/26/20 11:42 [From Dilantin] Remember Home Meds: Home Meds Insulin Detemir [Levemir] 6 units SQ BEDTIME 04/29/14 [History] levETIRAcetam [Keppra] 500 mg PO BIDMEALS 04/29/14 [History] Loperamide [Imodium] 4 mg PO DAILY 02/13/15 [History] Pioglitazone HCl 15 mg PO DAILY 07/09/18 [History] traZODone HCl [Trazodone HCl] 50 mg PO BEDTIME 07/09/18 [History] Metoclopramide [Reglan] 5 mg PO TIDAC 30 Days #90 tab 07/10/18 [Rx] Past Medical History HEENT History: Reports: None Cardiovascular History: Reports: Hypertension Respiratory History: Reports: None Gastrointestinal History: Reports: Gastritis, Other (See Below) Genitourinary History: Reports: UTI, Recurrent Musculoskeletal History: Reports: Amputation, Other (See Below) Other Musculoskeletal History: 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 Neurological History: Reports: Seizure Psychiatric History: Reports: None Endocrine/Metabolic History: Reports: Diabetes, Type II Hematologic History: Reports: None Immunologic History: Reports: None Oncologic (Cancer) History: Reports: None Dermatologic History: Reports: None - Infectious Disease History Infectious Disease History: Reports: None - Past Surgical History Head Surgeries/Procedures: Reports: None Cardiovascular Surgical History: Reports: None GI Surgical History: Reports: Cholecystectomy Male Surgical History: Reports: None Endocrine Surgical History: Reports: None Neurological Surgical History: Reports: None Musculoskeletal Surgical History: Reports: Amputation Social & Family History - Family History Family Medical History: No Pertinent Family History - Tobacco Use Tobacco Use Status *Q: Current Every Day Tobacco User Years of Tobacco use: 20 Packs/Tins Daily: 1 - Caffeine Use Caffeine Use: Reports: Coffee - Recreational Drug Use Recreational Drug Use: Yes Recreational Drug Type: Reports: Marijuana/Hashish Recreational Drug Last Use: 08/22/20 - Living Situation & Occupation Living situation: Reports: with Family Occupation: Disabled ED ROS GENERAL - Review of Systems Review Of Systems: Comprehensive ROS is negative, except as noted in HPI. ED EXAM, GI/ABD - Physical Exam Exam: See Below Exam Limited By: No Limitations General Appearance: Alert, WD/WN, Moderate Distress Eyes: Bilateral: Normal Appearance, EOMI Ears: Normal External Exam, Normal Canal, Hearing Grossly Normal, Normal TMs Nose: Normal Inspection, Normal Mucosa, No Blood Throat/Mouth: Normal Inspection, Normal Lips, Normal Teeth, Normal Gums, Normal Oropharynx, Normal Voice, No Airway Compromise Head: Atraumatic, Normocephalic Neck: Normal Inspection, Supple, Non-Tender, Full Range of Motion Respiratory/Chest: No Respiratory Distress, Lungs Clear, Normal Breath Sounds, No Accessory Muscle Use, Chest Non-Tender Cardiovascular: Normal Peripheral Pulses, Regular Rate, Rhythm, No Edema, No Gallop, No JVD, No Murmur, No Rub GI/Abdominal Exam: Tender (diffuse mild abdominal tenderness) (Male) Exam: Deferred Rectal (Males) Exam: Deferred Back Exam: Normal Inspection, Full Range of Motion, NT Extremities: Other (Bilateral below the knee amputee.) Neurological: Alert, Oriented, CN II-XII Intact, Normal Cognition Psychiatric: Normal Affect, Normal Mood Skin Exam: Warm, Dry, Intact, Normal Color, No Rash Lymphatic: No Adenopathy Course - Vital Signs Last Recorded V/S: Last Vital Signs Temp 97.8 F 08/26/20 11:45 Pulse 118 H 08/26/20 11:45 Resp 16 08/26/20 11:45 BP 156/86 H 08/26/20 11:45 Pulse Ox 100 08/26/20 11:45 - Orders/Labs/Meds Orders: Active Orders 24 hr Category Date Time Status CULTURE BLOOD [BC] Stat Lab 08/26/20 11:58 Received REFLEX LACTIC ACID YES OR NO [CHEM] Routine Lab 08/26/20 12:27 Received Labs: Laboratory Tests 08/26/20 08/26/20 08/26/20 Range/Units 11:58 11:58 11:58 WBC 8.2 (5.0-10.0) 10^3/uL RBC 5.45 (4.6-6.2) 10^6/uL Hgb 16.8 (14.0-18.0) g/dL Hct 49.5 (40.0-54.0) % MCV 90.8 (80-100) fL MCH 30.8 (27.0-34.0) pg MCHC 33.9 (33.0-35.0) g/dL Plt Count 170 (150-450) 10^3/uL Neut % (Auto) 88.9 H (42.2-75.2) % Lymph % (Auto) 3.7 L (20.5-50.1) % Catron % (Auto) 7.1 (2-8) % Eos % (Auto) 0.1 L (1.0-3.0) % Baso % (Auto) 0.2 (0.0-1.0) % Sodium 143 (136-145) mmol/L Potassium 4.0 (3.5-5.1) mmol/L Chloride 105 (98-107) mmol/L Carbon Dioxide 21 (21-32) mmol/L Anion Gap 21.0 H (7-13) mEq/L BUN 15 (7-18) mg/dL Creatinine 1.67 H (0.70-1.30) mg/dL Est Cr Clr Drug Dosing TNP Estimated GFR (MDRD) 44 BUN/Creatinine Ratio 9.0 (No establ ref range) Glucose 221 H (70-99) mg/dL Lactic Acid 2.4 H* (0.4-2.0) mmol/L Calcium 9.3 (8.5-10.1) mg/dL Total Bilirubin 1.5 H (0.2-1.0) mg/dL AST 21 (15-37) U/L ALT 20 (16-63) U/L Alkaline Phosphatase 111 (46-116) U/L Total Protein 8.2 (6.4-8.2) g/dL Albumin 4.3 (3.4-5.0) g/dL Globulin 3.9 Albumin/Globulin Ratio 1.1 Meds: Medications Discontinued Medications Generic Name Dose Route Start Last Admin Trade Name Freq PRN Reason Stop Dose Admin Metoclopramide HCl 10 mg 08/26/20 11:51 08/26/20 11:58 Metoclopramide 10 Mg/2 Ml Sdv IVPUSH 08/26/20 11:52 10 mg ONETIME ONE Administration - Re-Assessments/Exams Free Text/Narrative Re-Assessment/Exam: 08/26/20 13:54 The patient reports he is feeling much better at this time. Departure - Departure Time of Disposition: 13:54 Disposition: Home, Self-Care 01 Condition: Fair Clinical Impression: Gastroenteritis - Discharge Information *PRESCRIPTION DRUG MONITORING PROGRAM REVIEWED*: Not Applicable *COPY OF PRESCRIPTION DRUG MONITORING REPORT IN PATIENT NORRIS: Not Applicable Forms: ED Department Discharge Care Plan Goals: The patient was advised of the examination and lab results during the visit. The patient was given IV fluids and IV Zofran by EMS prior to arrival. The patient got a dose of IV Reglan while in the ED with resolution of his symptoms. The patient was discharged with a script for Reglan (10 mg) #20 to take 1 by mouth 4 times per day as needed for nausea. If the patient has any additional symptoms or concerns, the patient should either return to the emergency department or visit his primary care facility. Sepsis Event Note (ED) - Evaluation Sepsis Screening Result: No Definite Risk - Focused Exam Vital Signs: Vital Signs Temp Pulse Resp BP Pulse Ox 08/26/20 11:45 97.8 F 118 H 16 156/86 H 100 - My Orders Last 24 Hours: My Active Orders 08/26/20 11:58 CULTURE BLOOD [BC] Stat 08/26/20 12:27 REFLEX LACTIC ACID YES OR NO [CHEM] Routine - Assessment/Plan Last 24 Hours: My Active Orders 08/26/20 11:58 CULTURE BLOOD [BC] Stat 08/26/20 12:27 REFLEX LACTIC ACID YES OR NO [CHEM] Routine
[2020-08-26 12:23] LABS: CHLORIDE,CL 105 mmol/L (98-107); SODIUM,NA 143 mmol/L (136-145)
== END 2020-08-26 14:02 | disposition home or self-care (01) ==
LOC: DL.ED 11:36
DX: K52.9 Noninfective gastroenteritis and colitis, unspecified (principal); I10 Essential (primary) hypertension; E11.9 Type 2 diabetes mellitus without complications; R56.9 Unspecified convulsions; Z88.8 Allergy status to other drugs, medicaments and biological substances; Z79.899 Other long term (current) drug therapy
CPT/HCPCS: 36415; 80053; 83605; 85025; 87040; 96374; 99283; 99284; J2765

== ENCOUNTER 2022-03-04 14:23 | Emergency (ER) | payer MEDICARE, MEDICAID ==
[2022-03-04] MEDS ORDERED: Ondansetron 4 MG Tab.DIS PO ONE (14:24)
[2022-03-04 14:29] VITALS: BP 161/99; PULSE 109
[2022-03-04] MEDS ORDERED: Ondansetron 4 MG/2 ML SDV IVPUSH ONE (14:48)
[2022-03-04 15:29] LABS: RESPIRATORY SYNCYTIAL VIR NAA NEGATIVE (NEGATIVE)
[2022-03-04 15:30] LABS: ANION GAP 20.5 mEq/L (7-13); CHLORIDE,CL 103 mmol/L (98-107); SODIUM,NA 142 mmol/L (136-145)
[2022-03-04 15:31] LABS: CORONAVIRUS COVID-19 NAA POSITIVE (NEGATIVE)
[2022-03-04 15:37] LABS: ESTIMATED GFR 55 mL/min (>=60)
[2022-03-04] MEDS ORDERED: Magnesium Sulfate/Water 2 GM in Premix Bag 1 BAG IV ONE (15:46)
[2022-03-04] MEDS ORDERED: Metoclopramide 10 MG/2 ML SDV IVPUSH ONE (15:55)
[2022-03-04] MEDS ORDERED: Ondansetron 4 MG Tab.DIS ONE (16:55)
== END 2022-03-04 17:03 | disposition home or self-care (01) ==
LOC: DL.ED 14:23
DX: U07.1 COVID-19 (principal); I12.9 Hypertensive chronic kidney disease with stage 1 through stage 4 chronic kidney disease, or unspecified chronic kidney disease; N18.9 Chronic kidney disease, unspecified; E11.65 Type 2 diabetes mellitus with hyperglycemia; F17.210 Nicotine dependence, cigarettes, uncomplicated; Z89.511 Acquired absence of right leg below knee; Z89.512 Acquired absence of left leg below knee; Z88.8 Allergy status to other drugs, medicaments and biological substances; Z79.899 Other long term (current) drug therapy; Z90.49 Acquired absence of other specified parts of digestive tract; Z79.4 Long term (current) use of insulin
CPT/HCPCS: 0241U; 36415; 80053; 80307; 81001; 82009; 82150; 83605; 83690; 83735; 85025; 86140; 96374; 96375; 99284; A9270; J2405; J2765